=== PATIENT | male | born 1960 | race Hispanic/Latino ===

== ENCOUNTER 2017-07-17 07:39 | Outpatient (CLI) | payer BC ==
--- NOTE | 2017-07-17 09:17 | CT ---
CT LOW DOSE CANCER SCREENING PROTOCOL OF THE CHEST WITHOUT CONTRAST: Comparison: Smoking history for 30 years. Screening for lung cancer. Technique: Multiple contiguous axial images were obtained in a low dose chest CT without contrast per cancer screening protocol. Sagittal and coronal reformats were performed. FINDINGS: No pulmonary nodules were identified. No infiltrates are seen in the lungs. No pneumothorax or pleura l effusions are seen. The heart is normal in size without focal cardiac abnormality. The patient is status post CABG. No hi lar or mediastinal lymphadenopathy are appreciated on this noncontrast examination. The visualized subdiaphragmatic structures are unremarkable. Degenerative changes are seen in the spi ne. The chest wall soft tissues are unremarkable. IMPRESSION: Lungs rads category 1 - negative. POS: [facility]
== END 2017-07-17 07:40 | disposition home or self-care (01) ==
LOC: CT 07:39
PROVIDERS: ATTEND Family Medicine
DX: Z87.891 Personal history of nicotine dependence (principal)
CPT/HCPCS: G0297

== ENCOUNTER 2021-02-21 10:51 | Inpatient (IN) | payer MEDICARE, BC ==
[2021-02-21 11:59] LABS: #Eosinphils 0.1 thou/uL (0.0-0.7); #Lymphocytes 1.9 thou/uL (1.20-3.40); #Monocytes 0.7 thou/uL (0.11-0.59); #Neutrophils 11.9 thou/uL (1.40-6.50); %Basophils 0.3 % (0.0-1.0); %Eosinophils 0.6 % (0.0-10.0); %Monocytes 4.7 % (0.0-10.0); %Neutrophils 81.5 % (42.0-75.0); Hemoglobin 13.7 g/dL (14.0-18.0); Mean Corpuscular HGB CONC 34.2 g/dL (32.0-36.0); Mean Corpuscular Hemoglobin 34.7 pg (27.0-31.0); Mean Platelet Volume 8.1 fL (7.4-10.4); Platelet Count 251 thou/uL (130-400); RBC Distribution Width 11.7 % (11.5-14.5); Red Blood Cell (RBC) Count 3.95 mill/uL (4.70-6.10); White Blood Cell (WBC) Count 14.6 thou/uL (4.8-10.8)
[2021-02-21 12:09] LABS: ALT (SGPT) 10 U/L (8-55); AST (SGOT) 16 U/L (5-34); Albumin 3.4 g/dL (3.5-5.0); Alkaline Phosphatase 79 U/L (40-110); Anion Gap 10 mmol/L (10-20); BUN (Urea Nitrogen) 9 mg/dL (8.4-25.7); Calc. Creatinine Clearance 0 mL/min (70-130); Calcium 8.9 mg/dL (7.8-10.44); Carbon Dioxide 25 mmol/L (22-29); Chloride 102 mmol/L (98-107); Glucose 132 mg/dL (70-105); Potassium 3.4 mmol/L (3.5-5.1); Protein, Total 7.4 g/dL (6.0-8.3); Sodium 134 mmol/L (136-145)
[2021-02-21] MEDS ORDERED: Fentanyl 100 MCG/2 ML VIAL ONE (14:51)
[2021-02-21] MEDS ORDERED: Ondansetron PF 4 MG/2 ML Vial ONE (14:54)
[2021-02-21] MEDS ORDERED: Cefepime 2 GM VIAL ONE (14:56)
[2021-02-21] MEDS ORDERED: VANCOMYCIN 2 GRAM/400 ML BAG 2 GM in Premix Bag 1 BAG IVPB SCH (15:30)
[2021-02-21] MEDS ORDERED: Dextrose 50% Abboject 50 ML SYRINGE SLOW IVP PRN (18:04)
[2021-02-21] MEDS ORDERED: Dextrose 5% in Water 1,000 ML IV PRN (18:04)
[2021-02-21] MEDS ORDERED: Ondansetron ODT 4 MG TAB PO PRN (18:04)
[2021-02-21] MEDS ORDERED: HYDROcodone/Acetaminophen 5/325 mg Tablet PO PRN (18:04)
[2021-02-21] MEDS: HYDROcodone/Acetaminophen 5/325 mg Tablet PO PRN (19:37)
[2021-02-21 20:00] VITALS: BMI 30.9
[2021-02-22] MEDS: Cefepime 1 GM in Sodium Chloride 0.9% 100 ML IVPB SCH ×2 (02:33→15:47)
[2021-02-22] MEDS: HYDROcodone/Acetaminophen 5/325 mg Tablet PO PRN ×4 (02:33→19:18)
[2021-02-22] MEDS: VANCOMYCIN 2 GRAM/400 ML BAG 2 GM in Premix Bag 1 BAG IVPB SCH ×2 (05:18→17:24)
[2021-02-22 06:42] LABS: Anion Gap 9 mmol/L (10-20); BUN (Urea Nitrogen) 8 mg/dL (8.4-25.7); Calc. Creatinine Clearance 215 mL/min (70-130); Calcium 8.3 mg/dL (7.8-10.44); Carbon Dioxide 26 mmol/L (22-29); Chloride 103 mmol/L (98-107); Glucose 110 mg/dL (70-105); Potassium 3.5 mmol/L (3.5-5.1); Sodium 134 mmol/L (136-145)
[2021-02-22 06:46] LABS: #Eosinphils 0.2 thou/uL (0.0-0.7); #Lymphocytes 2.3 thou/uL (1.20-3.40); #Monocytes 0.8 thou/uL (0.11-0.59); #Neutrophils 9.5 thou/uL (1.40-6.50); %Basophils 0.1 % (0.0-1.0); %Eosinophils 1.2 % (0.0-10.0); %Lymphocytes 17.9 % (21.0-51.0); %Neutrophils 74.8 % (42.0-75.0); Hemoglobin 11.9 g/dL (14.0-18.0); Mean Corpuscular HGB CONC 33.5 g/dL (32.0-36.0); Mean Corpuscular Hemoglobin 34.2 pg (27.0-31.0); Mean Platelet Volume 8.3 fL (7.4-10.4); Platelet Count 246 thou/uL (130-400); RBC Distribution Width 11.7 % (11.5-14.5); Red Blood Cell (RBC) Count 3.48 mill/uL (4.70-6.10); White Blood Cell (WBC) Count 12.7 thou/uL (4.8-10.8)
[2021-02-22] MEDS: Gabapentin 300 MG CAP PO SCH (08:16)
[2021-02-22] MEDS: Enoxaparin Sodium 40 MG/0.4 ML SYRINGE SC SCH (08:16)
[2021-02-22] MEDS: Clopidogrel Bisulfate 75 MG TAB PO SCH (08:17)
[2021-02-22] MEDS: Aspirin 81 mg Enteric Coated Tablet PO SCH (08:17)
[2021-02-22] MEDS: Metoprolol Tartrate 50 MG TAB PO SCH (08:17)
[2021-02-22] MEDS ORDERED: Non-Formulary Item 1 EACH (Atorvastatin Calcium [Lipitor] 80 MG Tablet) PO SCH (09:00)
[2021-02-22] MEDS ORDERED: Non-Formulary Item 1 EACH (Gabapentin [Neurontin] 600 MG Tablet) PO SCH (09:00)
[2021-02-22] MEDS: Lisinopril/Hydrochlorothiazide 20/25 mg Tablet PO SCH (11:09)
[2021-02-22] MEDS: Cilostazol 100 MG TAB PO SCH ×2 (11:10→17:25)
[2021-02-22] MEDS: HumaLOG 300 UNITS/3 ML VIAL SC PRN ×2 (12:19→17:26)
[2021-02-22] MEDS: Acetaminophen 325 MG TAB PO PRN (16:30)
[2021-02-22] MEDS: Atorvastatin Calcium 40 MG TAB PO SCH (20:56)
[2021-02-23] MEDS: Cefepime 1 GM in Sodium Chloride 0.9% 100 ML IVPB SCH ×2 (03:00→15:57)
[2021-02-23] MEDS: VANCOMYCIN 2 GRAM/400 ML BAG 2 GM in Premix Bag 1 BAG IVPB SCH (05:04)
[2021-02-23 05:35] LABS: #Eosinphils 0.1 thou/uL (0.0-0.7); #Lymphocytes 1.4 thou/uL (1.20-3.40); #Monocytes 0.6 thou/uL (0.11-0.59); %Eosinophils 0.8 % (0.0-10.0); %Lymphocytes 11.7 % (21.0-51.0); %Monocytes 4.9 % (0.0-10.0); %Neutrophils 82.6 % (42.0-75.0); Mean Corpuscular HGB CONC 33.7 g/dL (32.0-36.0); Mean Corpuscular Hemoglobin 34.2 pg (27.0-31.0); Mean Platelet Volume 7.8 fL (7.4-10.4); Platelet Count 269 thou/uL (130-400); RBC Distribution Width 11.6 % (11.5-14.5); Red Blood Cell (RBC) Count 3.79 mill/uL (4.70-6.10); White Blood Cell (WBC) Count 12.2 thou/uL (4.8-10.8)
[2021-02-23 05:53] LABS: Vancomycin, Trough 10.4 ug/mL
[2021-02-23 05:54] LABS: Anion Gap 12 mmol/L (10-20); BUN (Urea Nitrogen) 5 mg/dL (8.4-25.7); Calc. Creatinine Clearance 166 mL/min (70-130); Calcium 8.8 mg/dL (7.8-10.44); Carbon Dioxide 26 mmol/L (22-29); Chloride 98 mmol/L (98-107); Glucose 150 mg/dL (70-105); Potassium 3.6 mmol/L (3.5-5.1); Sodium 132 mmol/L (136-145)
[2021-02-23] MEDS: Vancomycin 1.5 GRAM/300 ML BAG 1.5 GM in Premix Bag 1 BAG IVPB SCH ×2 (06:18→16:46)
[2021-02-23] MEDS: Gabapentin 300 MG CAP PO SCH (08:10)
[2021-02-23] MEDS: Cilostazol 100 MG TAB PO SCH ×2 (08:10→15:58)
[2021-02-23] MEDS: Lisinopril/Hydrochlorothiazide 20/25 mg Tablet PO SCH (08:11)
[2021-02-23] MEDS: Metoprolol Tartrate 50 MG TAB PO SCH (08:11)
[2021-02-23] MEDS: Enoxaparin Sodium 40 MG/0.4 ML SYRINGE SC SCH (08:11)
[2021-02-23] MEDS: Clopidogrel Bisulfate 75 MG TAB PO SCH (08:11)
[2021-02-23] MEDS: Aspirin 81 mg Enteric Coated Tablet PO SCH (08:11)
[2021-02-23] MEDS: HYDROcodone/Acetaminophen 5/325 mg Tablet PO PRN ×3 (09:32→20:04)
[2021-02-23] MEDS: HumaLOG 300 UNITS/3 ML VIAL SC PRN ×2 (11:47→16:47)
[2021-02-23] MEDS: Acetaminophen 325 MG TAB PO PRN (16:46)
[2021-02-23] MEDS: Atorvastatin Calcium 40 MG TAB PO SCH (20:04)
[2021-02-24] MEDS: Vancomycin 1.5 GRAM/300 ML BAG 1.5 GM in Premix Bag 1 BAG IVPB SCH ×3 (00:21→15:26)
[2021-02-24] MEDS: Cefepime 1 GM in Sodium Chloride 0.9% 100 ML IVPB SCH (03:40)
[2021-02-24 07:57] LABS: #Basophils 0.1 thou/uL (0.0-0.2); #Eosinphils 0.1 thou/uL (0.0-0.7); #Lymphocytes 1.4 thou/uL (1.20-3.40); #Monocytes 0.8 thou/uL (0.11-0.59); #Neutrophils 12.6 thou/uL (1.40-6.50); %Basophils 0.4 % (0.0-1.0); %Eosinophils 0.4 % (0.0-10.0); %Lymphocytes 9.1 % (21.0-51.0); %Monocytes 5.6 % (0.0-10.0); %Neutrophils 84.6 % (42.0-75.0); Hemoglobin 12.5 g/dL (14.0-18.0); Mean Corpuscular Hemoglobin 32.3 pg (27.0-31.0); Platelet Count 284 thou/uL (130-400); RBC Distribution Width 11.6 % (11.5-14.5); Red Blood Cell (RBC) Count 3.85 mill/uL (4.70-6.10); White Blood Cell (WBC) Count 14.9 thou/uL (4.8-10.8)
[2021-02-24 08:04] LABS: Vancomycin, Trough 16.5 ug/mL
[2021-02-24 08:08] LABS: Anion Gap 13 mmol/L (10-20); BUN (Urea Nitrogen) 7 mg/dL (8.4-25.7); Calc. Creatinine Clearance 145 mL/min (70-130); Carbon Dioxide 29 mmol/L (22-29); Chloride 95 mmol/L (98-107); Glucose 159 mg/dL (70-105); Potassium 3.9 mmol/L (3.5-5.1); Sodium 133 mmol/L (136-145)
[2021-02-24] MEDS: Lisinopril/Hydrochlorothiazide 20/25 mg Tablet PO SCH (08:23)
[2021-02-24] MEDS: Aspirin 81 mg Enteric Coated Tablet PO SCH (08:23)
[2021-02-24] MEDS: Cilostazol 100 MG TAB PO SCH ×2 (08:23→17:36)
[2021-02-24] MEDS: Clopidogrel Bisulfate 75 MG TAB PO SCH (08:24)
[2021-02-24] MEDS: Gabapentin 300 MG CAP PO SCH (08:24)
[2021-02-24] MEDS: Metoprolol Tartrate 50 MG TAB PO SCH (08:24)
[2021-02-24] MEDS: HYDROcodone/Acetaminophen 5/325 mg Tablet PO PRN ×3 (08:28→19:47)
[2021-02-24] MEDS: Enoxaparin Sodium 40 MG/0.4 ML SYRINGE SC SCH (08:33)
[2021-02-24] MEDS ORDERED: Ampicillin/Sulbactam 3 GM in Sodium Chloride 0.9% 100 ML IVPB SCH (12:00)
[2021-02-24] MEDS ORDERED: Electrolyte Replacement Protocol 1 EACH FS SCH (13:15)
[2021-02-24] MEDS ORDERED: Piperacillin/Tazobactam 3.375 GM in Sodium Chloride 0.9% 100 ML IVPB SCH ×3 (16:00→20:00)
[2021-02-24] MEDS ORDERED: Piperacillin/Tazobactam 4.5 GM in Sodium Chloride 0.9% 100 ML IVPB SCH (18:00)
[2021-02-24] MEDS: Atorvastatin Calcium 40 MG TAB PO SCH (19:46)
[2021-02-24] MEDS: Piperacillin/Tazobactam 3.375 GM in Sodium Chloride 0.9% 100 ML IVPB SCH (22:25)
[2021-02-25] MEDS: Vancomycin 1.5 GRAM/300 ML BAG 1.5 GM in Premix Bag 1 BAG IVPB SCH ×3 (00:17→15:43)
[2021-02-25] MEDS: HYDROcodone/Acetaminophen 5/325 mg Tablet PO PRN ×3 (05:21→22:37)
[2021-02-25] MEDS: Piperacillin/Tazobactam 3.375 GM in Sodium Chloride 0.9% 100 ML IVPB SCH ×3 (05:25→21:05)
[2021-02-25 05:52] LABS: #Eosinphils 0.1 thou/uL (0.0-0.7); #Lymphocytes 1.5 thou/uL (1.20-3.40); #Monocytes 0.9 thou/uL (0.11-0.59); #Neutrophils 15.1 thou/uL (1.40-6.50); %Basophils 0.2 % (0.0-1.0); %Eosinophils 0.4 % (0.0-10.0); %Lymphocytes 8.7 % (21.0-51.0); %Monocytes 5.2 % (0.0-10.0); %Neutrophils 85.5 % (42.0-75.0); Hemoglobin 12.8 g/dL (14.0-18.0); Mean Corpuscular Hemoglobin 33.1 pg (27.0-31.0); Mean Platelet Volume 7.6 fL (7.4-10.4); Platelet Count 319 thou/uL (130-400); RBC Distribution Width 11.6 % (11.5-14.5); Red Blood Cell (RBC) Count 3.86 mill/uL (4.70-6.10); White Blood Cell (WBC) Count 17.6 thou/uL (4.8-10.8)
[2021-02-25 06:10] LABS: Anion Gap 15 mmol/L (10-20); BUN (Urea Nitrogen) 11 mg/dL (8.4-25.7); Calc. Creatinine Clearance 149 mL/min (70-130); Calcium 8.9 mg/dL (7.8-10.44); Carbon Dioxide 23 mmol/L (22-29); Chloride 95 mmol/L (98-107); Glucose 182 mg/dL (70-105); Potassium 3.3 mmol/L (3.5-5.1); Sodium 130 mmol/L (136-145)
[2021-02-25] MEDS ORDERED: Potassium Chloride 20 MEQ TAB PO SCH (07:00)
[2021-02-25] MEDS: Saccharomyces boulardii 250 MG CAP PO SCH (09:52)
[2021-02-25] MEDS: Aspirin 81 mg Enteric Coated Tablet PO SCH (09:53)
[2021-02-25] MEDS: Gabapentin 300 MG CAP PO SCH (09:53)
[2021-02-25] MEDS: Clopidogrel Bisulfate 75 MG TAB PO SCH (09:53)
[2021-02-25] MEDS: Metoprolol Tartrate 50 MG TAB PO SCH (09:53)
[2021-02-25] MEDS: Lisinopril/Hydrochlorothiazide 20/25 mg Tablet PO SCH (09:54)
[2021-02-25] MEDS: Cilostazol 100 MG TAB PO SCH ×2 (09:54→15:43)
[2021-02-25] MEDS: HumaLOG 300 UNITS/3 ML VIAL SC PRN ×2 (12:50→17:24)
[2021-02-25] MEDS: Atorvastatin Calcium 40 MG TAB PO SCH (20:22)
[2021-02-25] MEDS: Polyethylene Glycol 3350 17 GM Packet PO PRN (20:26)
[2021-02-26] MEDS: Vancomycin 1.5 GRAM/300 ML BAG 1.5 GM in Premix Bag 1 BAG IVPB SCH ×2 (00:19→08:46)
[2021-02-26] MEDS: HYDROcodone/Acetaminophen 5/325 mg Tablet PO PRN ×4 (05:18→23:48)
[2021-02-26] MEDS: Piperacillin/Tazobactam 3.375 GM in Sodium Chloride 0.9% 100 ML IVPB SCH ×3 (05:20→22:00)
[2021-02-26] MEDS: Metoprolol Tartrate 50 MG TAB PO SCH (05:20)
[2021-02-26] MEDS: Gabapentin 300 MG CAP PO SCH (08:46)
[2021-02-26] MEDS: Aspirin 81 mg Enteric Coated Tablet PO SCH (08:46)
[2021-02-26] MEDS: Clopidogrel Bisulfate 75 MG TAB PO SCH ×3 (08:47→14:46)
[2021-02-26] MEDS: Lisinopril/Hydrochlorothiazide 20/25 mg Tablet PO SCH (08:47)
[2021-02-26] MEDS: Cilostazol 100 MG TAB PO SCH ×2 (08:47→18:02)
[2021-02-26] MEDS: Saccharomyces boulardii 250 MG CAP PO SCH (08:47)
[2021-02-26 09:51] LABS: #Eosinphils 0.1 thou/uL (0.0-0.7); #Lymphocytes 1.1 thou/uL (1.20-3.40); #Monocytes 0.8 thou/uL (0.11-0.59); #Neutrophils 13.8 thou/uL (1.40-6.50); %Eosinophils 0.6 % (0.0-10.0); %Lymphocytes 7.2 % (21.0-51.0); %Monocytes 4.7 % (0.0-10.0); %Neutrophils 87.4 % (42.0-75.0); Hemoglobin 12.8 g/dL (14.0-18.0); Mean Corpuscular Hemoglobin 34.1 pg (27.0-31.0); Mean Platelet Volume 7.5 fL (7.4-10.4); Platelet Count 328 thou/uL (130-400); RBC Distribution Width 11.5 % (11.5-14.5); Red Blood Cell (RBC) Count 3.77 mill/uL (4.70-6.10); White Blood Cell (WBC) Count 15.8 thou/uL (4.8-10.8)
[2021-02-26 10:09] LABS: Anion Gap 12 mmol/L (10-20); BUN (Urea Nitrogen) 10 mg/dL (8.4-25.7); Calc. Creatinine Clearance 155 mL/min (70-130); Calcium 8.7 mg/dL (7.8-10.44); Carbon Dioxide 27 mmol/L (22-29); Chloride 95 mmol/L (98-107); Glucose 188 mg/dL (70-105); Potassium 3.5 mmol/L (3.5-5.1); Sodium 130 mmol/L (136-145)
[2021-02-26] MEDS ORDERED: Potassium Chloride 20 MEQ TAB PO SCH (10:30)
[2021-02-26] MEDS: Morphine 4 MG/ML VIAL SLOW IVP PRN (12:11)
[2021-02-26] MEDS: HumaLOG 300 UNITS/3 ML VIAL SC PRN ×2 (12:11→18:03)
[2021-02-26 15:09] LABS: Vancomycin, Trough 22.4 ug/mL
[2021-02-26] MEDS: VANCOMYCIN 1.25 GM/250 ML BAG 1.25 GM in Premix Bag 1 BAG IVPB SCH ×2 (18:02→23:47)
[2021-02-26] MEDS: Atorvastatin Calcium 40 MG TAB PO SCH (19:05)
[2021-02-27] MEDS: HYDROcodone/Acetaminophen 5/325 mg Tablet PO PRN ×4 (04:42→21:28)
[2021-02-27] MEDS: Piperacillin/Tazobactam 3.375 GM in Sodium Chloride 0.9% 100 ML IVPB SCH ×3 (04:45→22:58)
[2021-02-27] MEDS: Metoprolol Tartrate 50 MG TAB PO SCH (05:13)
[2021-02-27 06:49] LABS: #Eosinphils 0.1 thou/uL (0.0-0.7); #Monocytes 0.9 thou/uL (0.11-0.59); #Neutrophils 13.5 thou/uL (1.40-6.50); %Basophils 0.1 % (0.0-1.0); %Eosinophils 0.8 % (0.0-10.0); %Lymphocytes 6.6 % (21.0-51.0); %Monocytes 5.7 % (0.0-10.0); %Neutrophils 86.8 % (42.0-75.0); Hemoglobin 12.3 g/dL (14.0-18.0); Mean Corpuscular HGB CONC 33.3 g/dL (32.0-36.0); Mean Corpuscular Hemoglobin 33.2 pg (27.0-31.0); Mean Corpuscular Volume 99.8 fL (78.0-98.0); Mean Platelet Volume 7.6 fL (7.4-10.4); Platelet Count 335 thou/uL (130-400); RBC Distribution Width 11.5 % (11.5-14.5); White Blood Cell (WBC) Count 15.6 thou/uL (4.8-10.8)
[2021-02-27 07:07] LABS: Anion Gap 12 mmol/L (10-20); BUN (Urea Nitrogen) 10 mg/dL (8.4-25.7); Calc. Creatinine Clearance 157 mL/min (70-130); Calcium 8.6 mg/dL (7.8-10.44); Carbon Dioxide 25 mmol/L (22-29); Chloride 95 mmol/L (98-107); Glucose 170 mg/dL (70-105); Potassium 3.3 mmol/L (3.5-5.1); Sodium 129 mmol/L (136-145)
[2021-02-27] MEDS: Morphine 4 MG/ML VIAL SLOW IVP PRN (08:22)
[2021-02-27] MEDS ORDERED: Potassium Chloride 20 MEQ TAB PO SCH (09:00)
[2021-02-27] MEDS ORDERED: SUGAMMADEX SODIUM 200 MG/2 ML VIAL ONE (09:04)
[2021-02-27] MEDS ORDERED: Fentanyl 100 MCG/2 ML VIAL ONE ×2 (09:04→11:07)
[2021-02-27] MEDS: VANCOMYCIN 1.25 GM/250 ML BAG 1.25 GM in Premix Bag 1 BAG IVPB SCH ×2 (09:14→17:08)
[2021-02-27] MEDS ORDERED: cefOXitin Sodium/Dextrose 2 GM/50 ML BAG ONE (09:15)
[2021-02-27] MEDS ORDERED: PHENYLEPHRINE-NS 100 MCG/ML 10 ML SYRINGE ONE (10:05)
[2021-02-27] MEDS ORDERED: Ondansetron PF 4 MG/2 ML Vial ONE (10:05)
[2021-02-27] MEDS ORDERED: PROPOFOL 200 MG/20 ML VIAL ONE (10:05)
[2021-02-27] MEDS ORDERED: Promethazine HCl 25 MG/ML VIAL IM PRN (11:01)
[2021-02-27] MEDS ORDERED: HYDROmorphone 2 MG/ML VIAL SLOW IVP PRN (11:01)
[2021-02-27] MEDS ORDERED: Meperidine HCl/PF 25 MG/ML VIAL SLOW IVP PRN (11:01)
[2021-02-27] MEDS ORDERED: Promethazine HCl 25 MG/ML VIAL IVPB PRN (11:01)
[2021-02-27] MEDS ORDERED: Ondansetron HCl/PF 4 MG/2 ML Vial IVP PRN (11:01)
[2021-02-27] MEDS ORDERED: Ketorolac Tromethamine 30 MG/ML VIAL IVP PRN (11:01)
[2021-02-27] MEDS: Cilostazol 100 MG TAB PO SCH ×2 (11:07→17:12)
[2021-02-27] MEDS: Lisinopril/Hydrochlorothiazide 20/25 mg Tablet PO SCH (12:48)
[2021-02-27] MEDS: Gabapentin 300 MG CAP PO SCH (12:48)
[2021-02-27] MEDS: Clopidogrel Bisulfate 75 MG TAB PO SCH (12:49)
[2021-02-27] MEDS: Aspirin 81 mg Enteric Coated Tablet PO SCH (12:50)
[2021-02-27] MEDS: Saccharomyces boulardii 250 MG CAP PO SCH (12:51)
[2021-02-27 15:24] LABS: Vancomycin, Trough 22.8 ug/mL
[2021-02-27] MEDS: HumaLOG 300 UNITS/3 ML VIAL SC PRN (17:10)
[2021-02-27] MEDS: Polyethylene Glycol 3350 17 GM Packet PO PRN (17:12)
[2021-02-27] MEDS: Vancomycin 1 GM in Premix Bag 1 BAG IVPB SCH (17:47)
[2021-02-27] MEDS: Atorvastatin Calcium 40 MG TAB PO SCH (20:04)
[2021-02-28] MEDS: HYDROcodone/Acetaminophen 5/325 mg Tablet PO PRN ×3 (02:58→16:26)
[2021-02-28] MEDS: Vancomycin 1 GM in Premix Bag 1 BAG IVPB SCH ×3 (04:28→17:52)
[2021-02-28 06:00] LABS: #Eosinphils 0.1 thou/uL (0.0-0.7); #Lymphocytes 1.4 thou/uL (1.20-3.40); #Monocytes 0.8 thou/uL (0.11-0.59); #Neutrophils 13.1 thou/uL (1.40-6.50); %Basophils 0.1 % (0.0-1.0); %Eosinophils 0.6 % (0.0-10.0); %Lymphocytes 8.8 % (21.0-51.0); %Monocytes 5.2 % (0.0-10.0); %Neutrophils 85.3 % (42.0-75.0); Hemoglobin 12.1 g/dL (14.0-18.0); Mean Corpuscular HGB CONC 32.6 g/dL (32.0-36.0); Mean Corpuscular Hemoglobin 32.6 pg (27.0-31.0); Mean Platelet Volume 7.4 fL (7.4-10.4); Platelet Count 367 thou/uL (130-400); RBC Distribution Width 11.7 % (11.5-14.5); White Blood Cell (WBC) Count 15.3 thou/uL (4.8-10.8)
[2021-02-28] MEDS: HumaLOG 300 UNITS/3 ML VIAL SC PRN ×4 (06:04→21:14)
[2021-02-28] MEDS: Piperacillin/Tazobactam 3.375 GM in Sodium Chloride 0.9% 100 ML IVPB SCH ×2 (06:07→16:25)
[2021-02-28 06:23] LABS: Anion Gap 11 mmol/L (10-20); BUN (Urea Nitrogen) 8 mg/dL (8.4-25.7); Calc. Creatinine Clearance 157 mL/min (70-130); Calcium 8.5 mg/dL (7.8-10.44); Carbon Dioxide 28 mmol/L (22-29); Chloride 92 mmol/L (98-107); Glucose 195 mg/dL (70-105); Potassium 3.5 mmol/L (3.5-5.1); Sodium 127 mmol/L (136-145)
[2021-02-28] MEDS: Clopidogrel Bisulfate 75 MG TAB PO SCH (08:22)
[2021-02-28] MEDS: Gabapentin 300 MG CAP PO SCH (08:22)
[2021-02-28] MEDS: Aspirin 81 mg Enteric Coated Tablet PO SCH (08:24)
[2021-02-28] MEDS: Saccharomyces boulardii 250 MG CAP PO SCH (08:24)
[2021-02-28] MEDS: Cilostazol 100 MG TAB PO SCH ×2 (08:24→16:27)
[2021-02-28] MEDS: Metoprolol Tartrate 50 MG TAB PO SCH (08:25)
[2021-02-28] MEDS: Lisinopril/Hydrochlorothiazide 20/25 mg Tablet PO SCH (08:25)
[2021-02-28] MEDS ORDERED: Potassium Chloride 20 MEQ TAB PO SCH (09:00)
[2021-02-28] MEDS ORDERED: Enoxaparin Sodium 40 MG/0.4 ML SYRINGE SC SCH (15:00)
[2021-02-28] MEDS: Enoxaparin Sodium 40 MG/0.4 ML SYRINGE SC SCH (15:07)
[2021-02-28] MEDS: Atorvastatin Calcium 40 MG TAB PO SCH (19:49)
[2021-03-01] MEDS: Piperacillin/Tazobactam 3.375 GM in Sodium Chloride 0.9% 100 ML IVPB SCH ×3 (01:41→17:02)
[2021-03-01] MEDS: HYDROcodone/Acetaminophen 5/325 mg Tablet PO PRN ×3 (01:48→17:03)
[2021-03-01 06:40] LABS: #Eosinphils 0.1 thou/uL (0.0-0.7); #Lymphocytes 1.7 thou/uL (1.20-3.40); #Monocytes 0.7 thou/uL (0.11-0.59); #Neutrophils 12.4 thou/uL (1.40-6.50); %Basophils 0.3 % (0.0-1.0); %Eosinophils 0.6 % (0.0-10.0); %Lymphocytes 11.6 % (21.0-51.0); %Monocytes 4.7 % (0.0-10.0); %Neutrophils 82.9 % (42.0-75.0); Hemoglobin 12.6 g/dL (14.0-18.0); Mean Corpuscular HGB CONC 32.7 g/dL (32.0-36.0); Mean Corpuscular Hemoglobin 32.6 pg (27.0-31.0); Mean Corpuscular Volume 99.7 fL (78.0-98.0); Mean Platelet Volume 7.3 fL (7.4-10.4); Platelet Count 411 thou/uL (130-400); RBC Distribution Width 11.7 % (11.5-14.5); Red Blood Cell (RBC) Count 3.86 mill/uL (4.70-6.10)
[2021-03-01 06:57] LABS: Anion Gap 11 mmol/L (10-20); BUN (Urea Nitrogen) 8 mg/dL (8.4-25.7); Calc. Creatinine Clearance 153 mL/min (70-130); Calcium 8.7 mg/dL (7.8-10.44); Carbon Dioxide 29 mmol/L (22-29); Chloride 93 mmol/L (98-107); Glucose 183 mg/dL (70-105); Potassium 3.7 mmol/L (3.5-5.1); Sodium 129 mmol/L (136-145)
[2021-03-01] MEDS: Enoxaparin Sodium 40 MG/0.4 ML SYRINGE SC SCH (09:17)
[2021-03-01] MEDS: Aspirin 81 mg Enteric Coated Tablet PO SCH (09:17)
[2021-03-01] MEDS: Metoprolol Tartrate 50 MG TAB PO SCH (09:18)
[2021-03-01] MEDS: Gabapentin 300 MG CAP PO SCH (09:18)
[2021-03-01] MEDS: Cilostazol 100 MG TAB PO SCH ×2 (09:18→17:02)
[2021-03-01] MEDS: Lisinopril 20 MG TAB PO SCH (09:19)
[2021-03-01] MEDS: Clopidogrel Bisulfate 75 MG TAB PO SCH (09:19)
[2021-03-01] MEDS: Saccharomyces boulardii 250 MG CAP PO SCH (09:19)
[2021-03-01] MEDS: HumaLOG 300 UNITS/3 ML VIAL SC PRN ×2 (12:33→17:05)
[2021-03-01] MEDS: Atorvastatin Calcium 40 MG TAB PO SCH (20:00)
[2021-03-01] MEDS: Morphine 4 MG/ML VIAL SLOW IVP PRN (20:00)
[2021-03-02] MEDS: Piperacillin/Tazobactam 3.375 GM in Sodium Chloride 0.9% 100 ML IVPB SCH ×3 (01:18→16:35)
[2021-03-02] MEDS: HYDROcodone/Acetaminophen 5/325 mg Tablet PO PRN ×3 (04:40→20:01)
[2021-03-02] MEDS: Metoprolol Tartrate 50 MG TAB PO SCH (08:43)
[2021-03-02] MEDS: Gabapentin 300 MG CAP PO SCH (08:43)
[2021-03-02] MEDS: Saccharomyces boulardii 250 MG CAP PO SCH (08:43)
[2021-03-02] MEDS: Enoxaparin Sodium 40 MG/0.4 ML SYRINGE SC SCH (08:44)
[2021-03-02] MEDS: Lisinopril 20 MG TAB PO SCH (08:44)
[2021-03-02] MEDS: Clopidogrel Bisulfate 75 MG TAB PO SCH (08:44)
[2021-03-02] MEDS: Cilostazol 100 MG TAB PO SCH ×2 (08:44→16:35)
[2021-03-02] MEDS: Aspirin 81 mg Enteric Coated Tablet PO SCH (08:44)
[2021-03-02] MEDS ORDERED: Iopamidol 370 76% 100 ML VIAL ONE (09:55)
[2021-03-02] MEDS: HumaLOG 300 UNITS/3 ML VIAL SC PRN ×2 (12:44→23:22)
[2021-03-02] MEDS: Lactated Ringer's 1,000 ML IV SCH (13:58)
[2021-03-02] MEDS ORDERED: Lantus 1000 UNITS/10 ML VIAL SC SCH (16:15)
[2021-03-02] MEDS: Atorvastatin Calcium 40 MG TAB PO SCH (20:01)
[2021-03-03] MEDS: Piperacillin/Tazobactam 3.375 GM in Sodium Chloride 0.9% 100 ML IVPB SCH ×3 (00:09→17:50)
[2021-03-03] MEDS: HYDROcodone/Acetaminophen 5/325 mg Tablet PO PRN ×3 (00:10→20:13)
[2021-03-03 05:52] LABS: #Eosinphils 0.2 thou/uL (0.0-0.7); #Lymphocytes 1.8 thou/uL (1.20-3.40); #Monocytes 0.7 thou/uL (0.11-0.59); %Basophils 0.4 % (0.0-1.0); %Eosinophils 1.2 % (0.0-10.0); %Lymphocytes 14.2 % (21.0-51.0); %Monocytes 5.3 % (0.0-10.0); %Neutrophils 78.9 % (42.0-75.0); Hemoglobin 12.2 g/dL (14.0-18.0); Mean Corpuscular HGB CONC 31.9 g/dL (32.0-36.0); Mean Corpuscular Hemoglobin 32.1 pg (27.0-31.0); Mean Platelet Volume 7.4 fL (7.4-10.4); Platelet Count 526 thou/uL (130-400); RBC Distribution Width 11.7 % (11.5-14.5); Red Blood Cell (RBC) Count 3.81 mill/uL (4.70-6.10); White Blood Cell (WBC) Count 12.6 thou/uL (4.8-10.8)
[2021-03-03 06:11] LABS: Anion Gap 11 mmol/L (10-20); BUN (Urea Nitrogen) 8 mg/dL (8.4-25.7); Calc. Creatinine Clearance 162 mL/min (70-130); Calcium 8.9 mg/dL (7.8-10.44); Carbon Dioxide 25 mmol/L (22-29); Chloride 99 mmol/L (98-107); Glucose 146 mg/dL (70-105); Potassium 4.2 mmol/L (3.5-5.1); Sodium 131 mmol/L (136-145)
[2021-03-03] MEDS: Cilostazol 100 MG TAB PO SCH ×2 (08:32→17:50)
[2021-03-03] MEDS: Aspirin 81 mg Enteric Coated Tablet PO SCH (08:32)
[2021-03-03] MEDS: Clopidogrel Bisulfate 75 MG TAB PO SCH (08:32)
[2021-03-03] MEDS: Lisinopril 20 MG TAB PO SCH (08:33)
[2021-03-03] MEDS: Lantus 1000 UNITS/10 ML VIAL SC SCH (08:33)
[2021-03-03] MEDS: Enoxaparin Sodium 40 MG/0.4 ML SYRINGE SC SCH (08:33)
[2021-03-03] MEDS: Saccharomyces boulardii 250 MG CAP PO SCH (08:34)
[2021-03-03] MEDS: Gabapentin 300 MG CAP PO SCH (08:36)
[2021-03-03] MEDS: Metoprolol Tartrate 50 MG TAB PO SCH (08:36)
[2021-03-03] MEDS ORDERED: Iopamidol 370 76% 50 ML VIAL FS ONE (09:40)
[2021-03-03] MEDS: Lactated Ringer's 1,000 ML IV SCH (11:47)
[2021-03-03] MEDS ORDERED: Lidocaine 1% (PF) 30 ML VIAL ONE (12:49)
[2021-03-03] MEDS: Morphine 4 MG/ML VIAL SLOW IVP PRN (12:54)
[2021-03-03] MEDS ORDERED: Heparin 10,000 UNITS/ 10 ML VIAL ONE (13:51)
[2021-03-03] MEDS ORDERED: Protamine Sulfate 50 MG/5 ML VIAL ONE (14:57)
[2021-03-03] MEDS ORDERED: Morphine 4 MG/ML VIAL ONE (15:43)
[2021-03-03] MEDS: Atorvastatin Calcium 40 MG TAB PO SCH (20:13)
[2021-03-04] MEDS: Piperacillin/Tazobactam 3.375 GM in Sodium Chloride 0.9% 100 ML IVPB SCH ×3 (00:55→17:04)
[2021-03-04] MEDS: Lactated Ringer's 1,000 ML IV SCH (04:29)
[2021-03-04] MEDS: HYDROcodone/Acetaminophen 5/325 mg Tablet PO PRN ×3 (04:56→23:10)
[2021-03-04] MEDS: HumaLOG 300 UNITS/3 ML VIAL SC PRN ×4 (04:58→20:51)
[2021-03-04 06:57] LABS: #Eosinphils 0.1 thou/uL (0.0-0.7); #Lymphocytes 1.3 thou/uL (1.20-3.40); #Monocytes 0.5 thou/uL (0.11-0.59); #Neutrophils 10.2 thou/uL (1.40-6.50); %Basophils 0.1 % (0.0-1.0); %Eosinophils 0.9 % (0.0-10.0); %Lymphocytes 10.6 % (21.0-51.0); %Monocytes 3.9 % (0.0-10.0); %Neutrophils 84.6 % (42.0-75.0); Hemoglobin 12.2 g/dL (14.0-18.0); Mean Corpuscular HGB CONC 32.3 g/dL (32.0-36.0); Mean Corpuscular Hemoglobin 32.5 pg (27.0-31.0); Platelet Count 551 thou/uL (130-400); RBC Distribution Width 11.6 % (11.5-14.5); Red Blood Cell (RBC) Count 3.76 mill/uL (4.70-6.10); White Blood Cell (WBC) Count 12.1 thou/uL (4.8-10.8)
[2021-03-04 07:19] LABS: Anion Gap 11 mmol/L (10-20); BUN (Urea Nitrogen) 9 mg/dL (8.4-25.7); Calc. Creatinine Clearance 159 mL/min (70-130); Calcium 8.7 mg/dL (7.8-10.44); Carbon Dioxide 25 mmol/L (22-29); Chloride 99 mmol/L (98-107); Glucose 188 mg/dL (70-105); Potassium 4.4 mmol/L (3.5-5.1); Sodium 131 mmol/L (136-145)
[2021-03-04] MEDS: Cilostazol 100 MG TAB PO SCH ×2 (08:02→15:45)
[2021-03-04] MEDS: Metoprolol Tartrate 50 MG TAB PO SCH (08:02)
[2021-03-04] MEDS: Aspirin 81 mg Enteric Coated Tablet PO SCH (08:02)
[2021-03-04] MEDS: Saccharomyces boulardii 250 MG CAP PO SCH (08:02)
[2021-03-04] MEDS: Enoxaparin Sodium 40 MG/0.4 ML SYRINGE SC SCH (08:03)
[2021-03-04] MEDS: Gabapentin 300 MG CAP PO SCH (08:03)
[2021-03-04] MEDS: Clopidogrel Bisulfate 75 MG TAB PO SCH (08:03)
[2021-03-04] MEDS: Lisinopril 20 MG TAB PO SCH (08:03)
[2021-03-04] MEDS: Lantus 1000 UNITS/10 ML VIAL SC SCH (08:04)
[2021-03-04] MEDS: Polyethylene Glycol 3350 17 GM Packet PO PRN (11:39)
[2021-03-04] MEDS: Atorvastatin Calcium 40 MG TAB PO SCH (20:51)
[2021-03-05] MEDS: Lactated Ringer's 1,000 ML IV SCH (00:25)
[2021-03-05] MEDS: Piperacillin/Tazobactam 3.375 GM in Sodium Chloride 0.9% 100 ML IVPB SCH ×3 (00:25→16:53)
[2021-03-05 06:19] LABS: #Eosinphils 0.1 thou/uL (0.0-0.7); #Monocytes 0.6 thou/uL (0.11-0.59); #Neutrophils 10.5 thou/uL (1.40-6.50); %Basophils 0.1 % (0.0-1.0); %Eosinophils 0.9 % (0.0-10.0); %Lymphocytes 15.2 % (21.0-51.0); %Monocytes 4.6 % (0.0-10.0); %Neutrophils 79.2 % (42.0-75.0); Hemoglobin 12.1 g/dL (14.0-18.0); Mean Corpuscular HGB CONC 33.9 g/dL (32.0-36.0); Mean Platelet Volume 7.1 fL (7.4-10.4); Platelet Count 570 thou/uL (130-400); RBC Distribution Width 11.6 % (11.5-14.5); Red Blood Cell (RBC) Count 3.57 mill/uL (4.70-6.10); White Blood Cell (WBC) Count 13.3 thou/uL (4.8-10.8)
[2021-03-05 06:35] LABS: Anion Gap 12 mmol/L (10-20); BUN (Urea Nitrogen) 7 mg/dL (8.4-25.7); Calc. Creatinine Clearance 159 mL/min (70-130); Carbon Dioxide 22 mmol/L (22-29); Chloride 102 mmol/L (98-107); Glucose 173 mg/dL (70-105); Potassium 4.3 mmol/L (3.5-5.1); Sodium 132 mmol/L (136-145)
[2021-03-05] MEDS: Cilostazol 100 MG TAB PO SCH ×2 (06:44→16:52)
[2021-03-05] MEDS: Lisinopril 20 MG TAB PO SCH (09:45)
[2021-03-05] MEDS: Aspirin 81 mg Enteric Coated Tablet PO SCH (09:45)
[2021-03-05] MEDS: Enoxaparin Sodium 40 MG/0.4 ML SYRINGE SC SCH (09:45)
[2021-03-05] MEDS: Metoprolol Tartrate 50 MG TAB PO SCH (09:45)
[2021-03-05] MEDS: Gabapentin 300 MG CAP PO SCH (09:46)
[2021-03-05] MEDS: Lantus 1000 UNITS/10 ML VIAL SC SCH (09:47)
[2021-03-05] MEDS: Clopidogrel Bisulfate 75 MG TAB PO SCH (09:47)
[2021-03-05] MEDS: Saccharomyces boulardii 250 MG CAP PO SCH (09:47)
[2021-03-05] MEDS: HumaLOG 300 UNITS/3 ML VIAL SC PRN ×2 (12:18→16:52)
[2021-03-05] MEDS: HYDROcodone/Acetaminophen 5/325 mg Tablet PO PRN ×2 (13:45→19:37)
[2021-03-05] MEDS: Atorvastatin Calcium 40 MG TAB PO SCH (19:37)
[2021-03-06] MEDS: Piperacillin/Tazobactam 3.375 GM in Sodium Chloride 0.9% 100 ML IVPB SCH ×3 (00:04→16:44)
[2021-03-06] MEDS: HumaLOG 300 UNITS/3 ML VIAL SC PRN ×3 (05:41→16:44)
[2021-03-06] MEDS: Lantus 1000 UNITS/10 ML VIAL SC SCH (07:54)
[2021-03-06] MEDS: Enoxaparin Sodium 40 MG/0.4 ML SYRINGE SC SCH (07:55)
[2021-03-06] MEDS: Metoprolol Tartrate 50 MG TAB PO SCH (07:56)
[2021-03-06] MEDS: Gabapentin 300 MG CAP PO SCH (07:56)
[2021-03-06] MEDS: Lisinopril 20 MG TAB PO SCH (07:57)
[2021-03-06] MEDS: Aspirin 81 mg Enteric Coated Tablet PO SCH (07:57)
[2021-03-06] MEDS: Saccharomyces boulardii 250 MG CAP PO SCH (07:57)
[2021-03-06] MEDS: Clopidogrel Bisulfate 75 MG TAB PO SCH (07:57)
[2021-03-06] MEDS: Cilostazol 100 MG TAB PO SCH ×2 (07:57→16:44)
[2021-03-06] MEDS: HYDROcodone/Acetaminophen 5/325 mg Tablet PO PRN ×2 (13:35→22:20)
[2021-03-06] MEDS: Atorvastatin Calcium 40 MG TAB PO SCH (20:11)
[2021-03-07] MEDS: Piperacillin/Tazobactam 3.375 GM in Sodium Chloride 0.9% 100 ML IVPB SCH ×3 (00:24→17:14)
[2021-03-07] MEDS: HumaLOG 300 UNITS/3 ML VIAL SC PRN ×3 (05:13→17:14)
[2021-03-07] MEDS: Lantus 1000 UNITS/10 ML VIAL SC SCH (08:25)
[2021-03-07] MEDS: Cilostazol 100 MG TAB PO SCH ×2 (08:26→17:14)
[2021-03-07] MEDS: Gabapentin 300 MG CAP PO SCH (08:26)
[2021-03-07] MEDS: Aspirin 81 mg Enteric Coated Tablet PO SCH (08:26)
[2021-03-07] MEDS: Clopidogrel Bisulfate 75 MG TAB PO SCH (08:27)
[2021-03-07] MEDS: Lisinopril 20 MG TAB PO SCH (08:27)
[2021-03-07] MEDS: Enoxaparin Sodium 40 MG/0.4 ML SYRINGE SC SCH (08:27)
[2021-03-07] MEDS: Metoprolol Tartrate 50 MG TAB PO SCH (08:28)
[2021-03-07] MEDS: Saccharomyces boulardii 250 MG CAP PO SCH (08:28)
[2021-03-07] MEDS: HYDROcodone/Acetaminophen 5/325 mg Tablet PO PRN ×2 (11:01→21:02)
[2021-03-07] MEDS: Atorvastatin Calcium 40 MG TAB PO SCH (21:02)
[2021-03-08] MEDS: HYDROcodone/Acetaminophen 5/325 mg Tablet PO PRN ×3 (01:04→18:35)
[2021-03-08] MEDS: Piperacillin/Tazobactam 3.375 GM in Sodium Chloride 0.9% 100 ML IVPB SCH ×3 (01:05→17:15)
[2021-03-08] MEDS: HumaLOG 300 UNITS/3 ML VIAL SC PRN ×2 (05:16→11:57)
[2021-03-08 06:36] LABS: #Basophils 0.1 thou/uL (0.0-0.2); #Eosinphils 0.1 thou/uL (0.0-0.7); #Lymphocytes 2.3 thou/uL (1.20-3.40); #Monocytes 0.4 thou/uL (0.11-0.59); #Neutrophils 8.5 thou/uL (1.40-6.50); %Basophils 0.6 % (0.0-1.0); %Monocytes 3.9 % (0.0-10.0); %Neutrophils 74.5 % (42.0-75.0); Hemoglobin 12.8 g/dL (14.0-18.0); Mean Platelet Volume 6.9 fL (7.4-10.4); Platelet Count 746 thou/uL (130-400); RBC Distribution Width 11.7 % (11.5-14.5); Red Blood Cell (RBC) Count 4.13 mill/uL (4.70-6.10); White Blood Cell (WBC) Count 11.4 thou/uL (4.8-10.8)
[2021-03-08 06:55] LABS: Anion Gap 11 mmol/L (10-20); BUN (Urea Nitrogen) 9 mg/dL (8.4-25.7); Calc. Creatinine Clearance 144 mL/min (70-130); Calcium 9.6 mg/dL (7.8-10.44); Carbon Dioxide 28 mmol/L (22-29); Chloride 99 mmol/L (98-107); Glucose 142 mg/dL (70-105); Sodium 134 mmol/L (136-145)
[2021-03-08] MEDS: Cilostazol 100 MG TAB PO SCH ×2 (08:51→17:19)
[2021-03-08] MEDS: Metoprolol Tartrate 50 MG TAB PO SCH (08:52)
[2021-03-08] MEDS: Aspirin 81 mg Enteric Coated Tablet PO SCH (08:52)
[2021-03-08] MEDS: Saccharomyces boulardii 250 MG CAP PO SCH (08:52)
[2021-03-08] MEDS: Lantus 1000 UNITS/10 ML VIAL SC SCH (08:52)
[2021-03-08] MEDS: Clopidogrel Bisulfate 75 MG TAB PO SCH (08:52)
[2021-03-08] MEDS: Gabapentin 300 MG CAP PO SCH (08:53)
[2021-03-08] MEDS: Enoxaparin Sodium 40 MG/0.4 ML SYRINGE SC SCH (08:54)
[2021-03-08] MEDS: Lisinopril 20 MG TAB PO SCH (08:55)
[2021-03-08] MEDS: Atorvastatin Calcium 40 MG TAB PO SCH (21:27)
[2021-03-09] MEDS: Piperacillin/Tazobactam 3.375 GM in Sodium Chloride 0.9% 100 ML IVPB SCH ×3 (01:15→16:09)
[2021-03-09] MEDS: HYDROcodone/Acetaminophen 5/325 mg Tablet PO PRN ×2 (06:44→20:26)
[2021-03-09] MEDS: Enoxaparin Sodium 40 MG/0.4 ML SYRINGE SC SCH ×2 (09:10→09:25)
[2021-03-09] MEDS: Gabapentin 300 MG CAP PO SCH (09:11)
[2021-03-09] MEDS: Lisinopril 20 MG TAB PO SCH (09:13)
[2021-03-09] MEDS: Clopidogrel Bisulfate 75 MG TAB PO SCH (09:13)
[2021-03-09] MEDS: Aspirin 81 mg Enteric Coated Tablet PO SCH (09:13)
[2021-03-09] MEDS: Saccharomyces boulardii 250 MG CAP PO SCH (09:13)
[2021-03-09] MEDS: Metoprolol Tartrate 50 MG TAB PO SCH (09:14)
[2021-03-09] MEDS: Lantus 1000 UNITS/10 ML VIAL SC SCH (09:15)
[2021-03-09] MEDS: Cilostazol 100 MG TAB PO SCH ×2 (09:29→16:09)
[2021-03-09] MEDS: HumaLOG 300 UNITS/3 ML VIAL SC PRN ×2 (12:22→17:16)
[2021-03-09 17:44] LABS: SARS-CoV-2 NAA Rapid Test Not Detected (NotDetected)
[2021-03-09] MEDS: Atorvastatin Calcium 40 MG TAB PO SCH (20:27)
[2021-03-10] MEDS: Piperacillin/Tazobactam 3.375 GM in Sodium Chloride 0.9% 100 ML IVPB SCH ×3 (01:14→17:09)
[2021-03-10] MEDS: Aspirin 81 mg Enteric Coated Tablet PO SCH (08:07)
[2021-03-10] MEDS: Cilostazol 100 MG TAB PO SCH ×2 (08:07→17:09)
[2021-03-10] MEDS: Enoxaparin Sodium 40 MG/0.4 ML SYRINGE SC SCH (08:07)
[2021-03-10] MEDS: Lantus 1000 UNITS/10 ML VIAL SC SCH (08:07)
[2021-03-10] MEDS: Saccharomyces boulardii 250 MG CAP PO SCH (08:08)
[2021-03-10] MEDS: Lisinopril 20 MG TAB PO SCH (08:09)
[2021-03-10 08:26] LABS: #Basophils 0.1 thou/uL (0.0-0.2); #Eosinphils 0.2 thou/uL (0.0-0.7); #Lymphocytes 1.7 thou/uL (1.20-3.40); #Monocytes 0.6 thou/uL (0.11-0.59); #Neutrophils 8.1 thou/uL (1.40-6.50); %Basophils 0.6 % (0.0-1.0); %Eosinophils 1.6 % (0.0-10.0); %Lymphocytes 15.9 % (21.0-51.0); %Monocytes 5.3 % (0.0-10.0); %Neutrophils 76.7 % (42.0-75.0); Mean Corpuscular HGB CONC 32.7 g/dL (32.0-36.0); Mean Corpuscular Hemoglobin 33.2 pg (27.0-31.0); Platelet Count 603 thou/uL (130-400); RBC Distribution Width 11.7 % (11.5-14.5); Red Blood Cell (RBC) Count 3.63 mill/uL (4.70-6.10); White Blood Cell (WBC) Count 10.6 thou/uL (4.8-10.8)
[2021-03-10 08:47] LABS: Anion Gap 10 mmol/L (10-20); BUN (Urea Nitrogen) 8 mg/dL (8.4-25.7); Calc. Creatinine Clearance 142 mL/min (70-130); Calcium 9.1 mg/dL (7.8-10.44); Carbon Dioxide 28 mmol/L (22-29); Chloride 101 mmol/L (98-107); Glucose 195 mg/dL (70-105); Potassium 4.3 mmol/L (3.5-5.1); Sodium 135 mmol/L (136-145)
[2021-03-10] MEDS: Gabapentin 300 MG CAP PO SCH (09:39)
[2021-03-10] MEDS: Metoprolol Tartrate 50 MG TAB PO SCH (09:40)
[2021-03-10] MEDS ORDERED: Fentanyl 100 MCG/2 ML VIAL ONE ×3 (12:25→15:20)
[2021-03-10] MEDS ORDERED: Midazolam HCl 2 mg/2 ml Vial ONE (12:25)
[2021-03-10] MEDS ORDERED: Ketorolac Tromethamine 30 MG/ML VIAL ONE (13:00)
[2021-03-10] MEDS ORDERED: Ondansetron PF 4 MG/2 ML Vial ONE (13:00)
[2021-03-10] MEDS ORDERED: PHENYLEPHRINE-NS 100 MCG/ML 10 ML SYRINGE ONE (13:00)
[2021-03-10] MEDS ORDERED: Bupivacaine HCl 0.5%/Epinephrine 1:200,000/PF 30 ml Vial ONE (13:00)
[2021-03-10] MEDS ORDERED: ePHEDrine 50 MG/ML VIAL ONE (13:00)
[2021-03-10] MEDS ORDERED: Dexamethasone 20 MG/5 ML VIAL ONE (13:00)
[2021-03-10] MEDS ORDERED: Promethazine HCl 25 MG/ML VIAL IM PRN (15:24)
[2021-03-10] MEDS ORDERED: Promethazine HCl 25 MG/ML VIAL IVPB PRN (15:24)
[2021-03-10] MEDS ORDERED: Meperidine HCl/PF 25 MG/ML VIAL SLOW IVP PRN (15:24)
[2021-03-10] MEDS ORDERED: Ondansetron HCl/PF 4 MG/2 ML Vial IVP PRN (15:24)
[2021-03-10] MEDS ORDERED: HYDROmorphone 2 MG/ML VIAL SLOW IVP PRN (15:24)
[2021-03-10] MEDS: HYDROcodone/Acetaminophen 5/325 mg Tablet PO PRN ×2 (16:25→20:10)
[2021-03-10] MEDS: HumaLOG 300 UNITS/3 ML VIAL SC PRN ×2 (17:26→20:11)
[2021-03-10] MEDS ORDERED: Temazepam 15 MG CAP PO PRN (18:40)
[2021-03-10] MEDS: Atorvastatin Calcium 40 MG TAB PO SCH (20:10)
[2021-03-11] MEDS: HYDROcodone/Acetaminophen 5/325 mg Tablet PO PRN ×5 (01:50→22:03)
[2021-03-11] MEDS: Piperacillin/Tazobactam 3.375 GM in Sodium Chloride 0.9% 100 ML IVPB SCH (01:50)
[2021-03-11 06:15] LABS: #Lymphocytes 1.3 thou/uL (1.20-3.40); #Monocytes 0.8 thou/uL (0.11-0.59); #Neutrophils 16.3 thou/uL (1.40-6.50); %Basophils 0.1 % (0.0-1.0); %Eosinophils 0.1 % (0.0-10.0); %Lymphocytes 7.3 % (21.0-51.0); %Monocytes 4.2 % (0.0-10.0); %Neutrophils 88.3 % (42.0-75.0); Hemoglobin 10.9 g/dL (14.0-18.0); Mean Corpuscular HGB CONC 33.1 g/dL (32.0-36.0); Mean Corpuscular Hemoglobin 33.7 pg (27.0-31.0); Platelet Count 577 thou/uL (130-400); RBC Distribution Width 11.6 % (11.5-14.5); Red Blood Cell (RBC) Count 3.22 mill/uL (4.70-6.10); White Blood Cell (WBC) Count 18.5 thou/uL (4.8-10.8)
[2021-03-11] MEDS: Lisinopril 20 MG TAB PO SCH (08:19)
[2021-03-11] MEDS: Aspirin 81 mg Enteric Coated Tablet PO SCH (08:19)
[2021-03-11] MEDS: Cilostazol 100 MG TAB PO SCH ×2 (08:19→17:19)
[2021-03-11] MEDS: Metoprolol Tartrate 50 MG TAB PO SCH (08:20)
[2021-03-11] MEDS: Saccharomyces boulardii 250 MG CAP PO SCH (08:20)
[2021-03-11] MEDS: Gabapentin 300 MG CAP PO SCH (08:20)
[2021-03-11 08:22] LABS: Anion Gap 9 mmol/L (10-20); BUN (Urea Nitrogen) 11 mg/dL (8.4-25.7); Calc. Creatinine Clearance 153 mL/min (70-130); Calcium 8.6 mg/dL (7.8-10.44); Carbon Dioxide 26 mmol/L (22-29); Chloride 101 mmol/L (98-107); Glucose 196 mg/dL (70-105); Potassium 3.8 mmol/L (3.5-5.1); Sodium 132 mmol/L (136-145)
[2021-03-11] MEDS: Enoxaparin Sodium 40 MG/0.4 ML SYRINGE SC SCH (08:24)
[2021-03-11] MEDS: Lantus 1000 UNITS/10 ML VIAL SC SCH (09:49)
[2021-03-11] MEDS ORDERED: HYDROcodone/Acetaminophen 5/325 mg Tablet PO PRN (11:14)
[2021-03-11] MEDS: HumaLOG 300 UNITS/3 ML VIAL SC PRN (13:10)
[2021-03-11] MEDS: Atorvastatin Calcium 40 MG TAB PO SCH (19:48)
[2021-03-12] MEDS: HYDROcodone/Acetaminophen 5/325 mg Tablet PO PRN ×3 (05:02→16:12)
[2021-03-12] MEDS: HumaLOG 300 UNITS/3 ML VIAL SC PRN ×2 (05:04→12:10)
[2021-03-12 05:29] LABS: #Basophils 0.1 thou/uL (0.0-0.2); #Eosinphils 0.1 thou/uL (0.0-0.7); #Lymphocytes 1.6 thou/uL (1.20-3.40); #Monocytes 0.5 thou/uL (0.11-0.59); #Neutrophils 10.7 thou/uL (1.40-6.50); %Basophils 0.5 % (0.0-1.0); %Eosinophils 0.8 % (0.0-10.0); %Lymphocytes 12.2 % (21.0-51.0); %Monocytes 3.9 % (0.0-10.0); %Neutrophils 82.6 % (42.0-75.0); Hemoglobin 10.8 g/dL (14.0-18.0); Mean Corpuscular HGB CONC 33.6 g/dL (32.0-36.0); Mean Corpuscular Hemoglobin 33.4 pg (27.0-31.0); Mean Corpuscular Volume 99.3 fL (78.0-98.0); Platelet Count 553 thou/uL (130-400); RBC Distribution Width 11.6 % (11.5-14.5); Red Blood Cell (RBC) Count 3.23 mill/uL (4.70-6.10)
[2021-03-12 05:49] LABS: Anion Gap 11 mmol/L (10-20); BUN (Urea Nitrogen) 7 mg/dL (8.4-25.7); Calc. Creatinine Clearance 171 mL/min (70-130); Calcium 8.7 mg/dL (7.8-10.44); Carbon Dioxide 27 mmol/L (22-29); Chloride 100 mmol/L (98-107); Glucose 182 mg/dL (70-105); Potassium 4.3 mmol/L (3.5-5.1); Sodium 134 mmol/L (136-145)
[2021-03-12] MEDS: Lisinopril 20 MG TAB PO SCH (07:53)
[2021-03-12] MEDS: Cilostazol 100 MG TAB PO SCH ×2 (07:53→16:11)
[2021-03-12] MEDS: Aspirin 81 mg Enteric Coated Tablet PO SCH (07:53)
[2021-03-12] MEDS: Metoprolol Tartrate 50 MG TAB PO SCH (07:53)
[2021-03-12] MEDS: Saccharomyces boulardii 250 MG CAP PO SCH (07:53)
[2021-03-12] MEDS: Gabapentin 300 MG CAP PO SCH (07:53)
[2021-03-12] MEDS: Enoxaparin Sodium 40 MG/0.4 ML SYRINGE SC SCH (07:55)
[2021-03-12] MEDS: Lantus 1000 UNITS/10 ML VIAL SC SCH (07:55)
[2021-03-12] MEDS: Polyethylene Glycol 3350 17 GM Packet PO PRN (12:09)
[2021-03-12] MEDS: Atorvastatin Calcium 40 MG TAB PO SCH (19:59)
[2021-03-13] MEDS: HYDROcodone/Acetaminophen 5/325 mg Tablet PO PRN (03:36)
[2021-03-13] MEDS: Gabapentin 300 MG CAP PO SCH (08:08)
[2021-03-13] MEDS: Cilostazol 100 MG TAB PO SCH ×2 (08:08→17:38)
[2021-03-13] MEDS: Aspirin 81 mg Enteric Coated Tablet PO SCH (08:08)
[2021-03-13] MEDS: Saccharomyces boulardii 250 MG CAP PO SCH (08:09)
[2021-03-13] MEDS: Lisinopril 20 MG TAB PO SCH (08:09)
[2021-03-13] MEDS: Metoprolol Tartrate 50 MG TAB PO SCH (08:09)
[2021-03-13] MEDS: Enoxaparin Sodium 40 MG/0.4 ML SYRINGE SC SCH (08:09)
[2021-03-13] MEDS: Lantus 1000 UNITS/10 ML VIAL SC SCH (08:21)
[2021-03-13] MEDS: HumaLOG 300 UNITS/3 ML VIAL SC PRN (12:53)
[2021-03-13 16:52] VITALS: BP 142/79; TEMP 98
== END 2021-03-13 18:30 | DRG 854 ==
LOC: ERS 10:51 → OBSVTOIN 16:25 → T4-B 16:25
PROVIDERS: ADMIT Nurse Practitioner Family; ATTEND Internal Medicine
PROC: 0LBW0ZZ Excision of Left Foot Tendon, Open Approach (ICD-10-PCS; 2021-02-27)
PROC: 047L3DZ Dilation of Left Femoral Artery with Intraluminal Device, Percutaneous Approach (ICD-10-PCS; 2021-03-03)
PROC: 047N3ZZ Dilation of Left Popliteal Artery, Percutaneous Approach (ICD-10-PCS; 2021-03-03)
PROC: B41D1ZZ Fluoroscopy of Aorta and Bilateral Lower Extremity Arteries using Low Osmolar Contrast (ICD-10-PCS; 2021-03-03)
PROC: 0Y6J0Z1 Detachment at Left Lower Leg, High, Open Approach (ICD-10-PCS; principal; 2021-03-10)
DX: A41.9 Sepsis, unspecified organism (principal); E11.52 Type 2 diabetes mellitus with diabetic peripheral angiopathy with gangrene; I70.262 Atherosclerosis of native arteries of extremities with gangrene, left leg; L03.116 Cellulitis of left lower limb; L02.612 Cutaneous abscess of left foot; E87.1 Hypo-osmolality and hyponatremia; Z20.822 Contact with and (suspected) exposure to COVID-19; E11.621 Type 2 diabetes mellitus with foot ulcer; L97.529 Non-pressure chronic ulcer of other part of left foot with unspecified severity; I25.10 Atherosclerotic heart disease of native coronary artery without angina pectoris; E78.5 Hyperlipidemia, unspecified; E11.42 Type 2 diabetes mellitus with diabetic polyneuropathy; I70.202 Unspecified atherosclerosis of native arteries of extremities, left leg; M65.9 Synovitis and tenosynovitis, unspecified; M71.9 Bursopathy, unspecified; E11.620 Type 2 diabetes mellitus with diabetic dermatitis; E11.628 Type 2 diabetes mellitus with other skin complications; K21.9 Gastro-esophageal reflux disease without esophagitis; Z95.5 Presence of coronary angioplasty implant and graft; Z95.828 Presence of other vascular implants and grafts; Z95.1 Presence of aortocoronary bypass graft; Z89.421 Acquired absence of other right toe(s); Z87.891 Personal history of nicotine dependence; Z88.0 Allergy status to penicillin; Z83.3 Family history of diabetes mellitus; Z79.899 Other long term (current) drug therapy; Z79.4 Long term (current) use of insulin; Z79.82 Long term (current) use of aspirin; Z79.02 Long term (current) use of antithrombotics/antiplatelets
CPT/HCPCS: 36005; 36415; 36416; 37226; 75635; 76942; 80048; 80053; 80202; 83605; 85025; 85347; 87040; 87070; 87077; 87186; 87205; 88307; 93880; 93923; 96365; 96367; 96375; C1725; J0295; J0692; J0694; J1100; J1644; J1650; J1815; J1885; J2001; J2250; J2270; J2405; J2543; J2704; J2720; J3010; J3370; J3490; Q9967; U0002; U0005

== ENCOUNTER 2021-04-05 08:12 | Inpatient (IN) | payer MEDICARE, BC ==
[2021-04-05 09:36] LABS: Hemoglobin 12.1 g/dL (14.0-18.0); Mean Corpuscular HGB CONC 34.7 g/dL (32.0-36.0); Mean Corpuscular Hemoglobin 33.9 pg (27.0-31.0); Mean Corpuscular Volume 97.6 fL (78.0-98.0); Mean Platelet Volume 7.6 fL (7.4-10.4); Platelet Count 435 thou/uL (130-400); RBC Distribution Width 13.7 % (11.5-14.5); Red Blood Cell (RBC) Count 3.58 mill/uL (4.70-6.10); White Blood Cell (WBC) Count 18.3 thou/uL (4.8-10.8)
[2021-04-05] MEDS ORDERED: Iopamidol-370 76% 500 ML 1 ML ONE (09:53)
[2021-04-05 09:57] LABS: Band 21 % (5-11); Lymphocytes 7 % (21-51); MDiff Complete? YES; Monocytes 3 % (0-10); Neutrophil 69 % (42-75); Platelet Morphology Comment Appears Increased; RBC Morphology Normal
[2021-04-05 10:01] LABS: ALT (SGPT) 92 U/L (8-55); AST (SGOT) 67 U/L (5-34); Albumin 3.5 g/dL (3.5-5.0); Alkaline Phosphatase 125 U/L (40-110); Anion Gap 18 mmol/L (10-20); BUN (Urea Nitrogen) 12 mg/dL (8.4-25.7); Bilirubin, Total 0.9 mg/dL (0.2-1.2); Calc. Creatinine Clearance 0 mL/min (70-130); Calcium 9.4 mg/dL (7.8-10.44); Carbon Dioxide 21 mmol/L (22-29); Chloride 95 mmol/L (98-107); Globulin 4.3 g/dL (2.4-3.5); Glucose 163 mg/dL (70-105); Lipase 43 U/L (8-78); Potassium 3.7 mmol/L (3.5-5.1); Protein, Total 7.8 g/dL (6.0-8.3); Sodium 130 mmol/L (136-145)
[2021-04-05] MEDS ORDERED: Sodium Chloride 0.9% 0 ML ONE (11:10)
[2021-04-05] MEDS ORDERED: metroNIDAZOLE 500 MG/100 ML BAG ONE (11:10)
[2021-04-05] MEDS ORDERED: Morphine 4 MG/ML VIAL ONE (11:16)
[2021-04-05] MEDS ORDERED: Aztreonam 1 GM in Sodium Chloride 0.9% 100 ML IVPB SCH (11:30)
[2021-04-05 13:15] LABS: SARS-CoV-2 NAA Rapid Test Not Detected (NotDetected)
[2021-04-05] MEDS ORDERED: Fentanyl 100 MCG/2 ML VIAL ONE ×4 (14:01→17:43)
[2021-04-05] MEDS ORDERED: Midazolam HCl 2 mg/2 ml Vial ONE (14:12)
[2021-04-05 14:43] LABS: Lactic Acid 3.2 mmol/L (0.5-2.2)
[2021-04-05] MEDS ORDERED: PHENYLEPHRINE-NS 100 MCG/ML 10 ML SYRINGE ONE (14:46)
[2021-04-05] MEDS ORDERED: PROPOFOL 200 MG/20 ML VIAL ONE (14:46)
[2021-04-05] MEDS ORDERED: Bupivacaine HCl 0.5%/Epinephrine 1:200,000/PF 30 ml Vial ONE (14:46)
[2021-04-05] MEDS ORDERED: Rocuronium Bromide 10 MG/ML (10ML VIAL) ONE (14:46)
[2021-04-05] MEDS ORDERED: Glycopyrrolate 0.2 MG/ML 5 ML SYRINGE ONE (14:46)
[2021-04-05] MEDS ORDERED: Dexamethasone 20 MG/5 ML VIAL ONE (14:46)
[2021-04-05] MEDS ORDERED: Bupivacaine/Epinephrine 0.25% 30 ML VIAL ONE (14:46)
[2021-04-05] MEDS ORDERED: Ondansetron PF 4 MG/2 ML Vial ONE (14:46)
[2021-04-05] MEDS ORDERED: Lidocaine 1% PF 5 ML VIAL ONE (14:46)
[2021-04-05] MEDS ORDERED: Phenylephrine 10 MG/ML VIAL ONE (14:52)
[2021-04-05] MEDS ORDERED: Norepinephrine 4 MG/4 ML VIAL ONE (14:58)
[2021-04-05] MEDS ORDERED: Ketamine 50 MG/ML (10ML VIAL) ONE (16:44)
[2021-04-05] MEDS ORDERED: Promethazine HCl 25 MG/ML VIAL IM PRN ×2 (17:07→17:29)
[2021-04-05] MEDS ORDERED: Promethazine HCl 25 MG/ML VIAL IVPB PRN (17:07)
[2021-04-05] MEDS ORDERED: Ondansetron HCl/PF 4 MG/2 ML Vial IVP PRN (17:07)
[2021-04-05] MEDS ORDERED: Lactated Ringer's 1,000 ML IV SCH (17:29)
[2021-04-05] MEDS ORDERED: Morphine 2 MG/ML VIAL SLOW IVP PRN (17:29)
[2021-04-05] MEDS ORDERED: hydrALAZINE 20 MG/ML VIAL SLOW IVP PRN (17:29)
[2021-04-05] MEDS ORDERED: Morphine 4 MG/ML VIAL SLOW IVP PRN (17:29)
[2021-04-05] MEDS: Lactated Ringer's 1,000 ML IV SCH (18:55)
[2021-04-05] MEDS: metroNIDAZOLE 500 MG in Premix Bag 1 BAG IVPB SCH (19:03)
[2021-04-05] MEDS: Ondansetron PF 4 MG/2 ML Vial IVP PRN (19:07)
[2021-04-05] MEDS: HYDROcodone/Acetaminophen 7.5/325 mg Tablet PO PRN (19:07)
[2021-04-05] MEDS: metFORMIN 500 MG TAB PO SCH ×2 (19:07→19:11)
[2021-04-05] MEDS ORDERED: Zolpidem Tartrate 5 MG TAB PO PRN (23:18)
[2021-04-05] MEDS: Famotidine 20 MG TAB PO SCH (23:24)
[2021-04-05] MEDS: Famotidine/PF 20 mg/2ml Vial SLOW IVP SCH (23:24)
[2021-04-05 23:28] VITALS: BMI 31.5
[2021-04-06] MEDS: metroNIDAZOLE 500 MG in Premix Bag 1 BAG IVPB SCH ×2 (00:55→05:46)
[2021-04-06] MEDS: Lactated Ringer's 1,000 ML IV SCH ×3 (00:56→20:20)
[2021-04-06 03:43] LABS: Hemoglobin A1c 6.4 % (4.0-6.0)
[2021-04-06 03:48] LABS: Anion Gap 11 mmol/L (10-20); BUN (Urea Nitrogen) 11 mg/dL (8.4-25.7); Calc. Creatinine Clearance 173 mL/min (70-130); Calcium 8.1 mg/dL (7.8-10.44); Carbon Dioxide 23 mmol/L (22-29); Chloride 102 mmol/L (98-107); Cholesterol 85 mg/dl (< 200 Desired); Glucose 98 mg/dL (70-105); HDL Cholesterol 28 mg/dL (>60 Neg Risk); LDL Cholesterol, Calculated 45 mg/dL; Potassium 3.7 mmol/L (3.5-5.1); Sodium 132 mmol/L (136-145); Triglycerides 61 mg/dL (Less than 150)
[2021-04-06] MEDS ORDERED: VANCOMYCIN 2 GRAM/400 ML BAG 2 GM in Premix Bag 1 BAG IVPB SCH (04:00)
[2021-04-06 04:02] LABS: #Lymphocytes 1.7 thou/uL (1.20-3.40); #Monocytes 0.5 thou/uL (0.11-0.59); %Basophils 0.1 % (0.0-1.0); %Eosinophils 0.1 % (0.0-10.0); %Lymphocytes 12.8 % (21.0-51.0); %Monocytes 3.5 % (0.0-10.0); %Neutrophils 83.5 % (42.0-75.0); Hemoglobin 9.1 g/dL (14.0-18.0); Mean Corpuscular HGB CONC 34.2 g/dL (32.0-36.0); Mean Corpuscular Volume 99.4 fL (78.0-98.0); Mean Platelet Volume 7.7 fL (7.4-10.4); Platelet Count 267 thou/uL (130-400); RBC Distribution Width 13.9 % (11.5-14.5); Red Blood Cell (RBC) Count 2.68 mill/uL (4.70-6.10); White Blood Cell (WBC) Count 13.1 thou/uL (4.8-10.8)
[2021-04-06] MEDS: Acetaminophen 325 MG TAB PO PRN (05:51)
[2021-04-06] MEDS: metFORMIN 500 MG TAB PO SCH ×2 (08:14→08:15)
[2021-04-06] MEDS ORDERED: Metoprolol Tartrate 50 MG TAB PO SCH (09:00)
[2021-04-06] MEDS: Enoxaparin Sodium 40 MG/0.4 ML SYRINGE SC SCH (09:00)
[2021-04-06] MEDS: Famotidine/PF 20 mg/2ml Vial SLOW IVP SCH ×2 (09:00→23:41)
[2021-04-06] MEDS: Famotidine 20 MG TAB PO SCH ×2 (10:05→22:00)
[2021-04-06] MEDS: Saccharomyces boulardii 250 MG CAP PO SCH (10:06)
[2021-04-06 10:28] LABS: #Lymphocytes 0.8 thou/uL (1.20-3.40); #Monocytes 0.5 thou/uL (0.11-0.59); #Neutrophils 12.3 thou/uL (1.40-6.50); %Basophils 0.3 % (0.0-1.0); %Eosinophils 0.1 % (0.0-10.0); %Lymphocytes 5.8 % (21.0-51.0); %Monocytes 3.7 % (0.0-10.0); %Neutrophils 90.1 % (42.0-75.0); Hemoglobin 9.6 g/dL (14.0-18.0); Mean Corpuscular HGB CONC 33.5 g/dL (32.0-36.0); Mean Corpuscular Hemoglobin 33.7 pg (27.0-31.0); Mean Platelet Volume 8.2 fL (7.4-10.4); Platelet Count 280 thou/uL (130-400); Red Blood Cell (RBC) Count 2.84 mill/uL (4.70-6.10); White Blood Cell (WBC) Count 13.7 thou/uL (4.8-10.8)
[2021-04-06] MEDS: HYDROcodone/Acetaminophen 7.5/325 mg Tablet PO PRN ×2 (11:07→22:00)
[2021-04-06] MEDS: Ondansetron PF 4 MG/2 ML Vial IVP PRN (11:12)
[2021-04-06] MEDS ORDERED: HYDROcodone/Acetaminophen 7.5/325 mg Tablet PO PRN (14:59)
[2021-04-06] MEDS: VANCOMYCIN 1.25 GM/250 ML BAG 1.25 GM in Premix Bag 1 BAG IVPB SCH (16:47)
[2021-04-07] MEDS: Lactated Ringer's 1,000 ML IV SCH ×3 (04:22→20:44)
[2021-04-07] MEDS: HYDROcodone/Acetaminophen 7.5/325 mg Tablet PO PRN ×3 (04:23→20:46)
[2021-04-07] MEDS: VANCOMYCIN 1.25 GM/250 ML BAG 1.25 GM in Premix Bag 1 BAG IVPB SCH (04:25)
[2021-04-07] MEDS: Saccharomyces boulardii 250 MG CAP PO SCH (09:05)
[2021-04-07] MEDS: Famotidine 20 MG TAB PO SCH ×2 (09:06→20:44)
[2021-04-07] MEDS: Enoxaparin Sodium 40 MG/0.4 ML SYRINGE SC SCH (09:06)
[2021-04-07] MEDS: Famotidine/PF 20 mg/2ml Vial SLOW IVP SCH ×2 (09:06→20:45)
[2021-04-07] MEDS: metFORMIN 500 MG TAB PO SCH (09:06)
[2021-04-07 09:55] LABS: #Lymphocytes 1.4 thou/uL (1.20-3.40); #Monocytes 0.3 thou/uL (0.11-0.59); #Neutrophils 12.3 thou/uL (1.40-6.50); %Basophils 0.1 % (0.0-1.0); %Eosinophils 0.2 % (0.0-10.0); %Lymphocytes 9.6 % (21.0-51.0); %Monocytes 2.4 % (0.0-10.0); %Neutrophils 87.7 % (42.0-75.0); Hemoglobin 8.8 g/dL (14.0-18.0); Mean Corpuscular HGB CONC 33.7 g/dL (32.0-36.0); Mean Corpuscular Hemoglobin 33.6 pg (27.0-31.0); Mean Corpuscular Volume 99.8 fL (78.0-98.0); Mean Platelet Volume 8.3 fL (7.4-10.4); Platelet Count 284 thou/uL (130-400); RBC Distribution Width 13.6 % (11.5-14.5); Red Blood Cell (RBC) Count 2.61 mill/uL (4.70-6.10)
[2021-04-07 10:07] LABS: Anion Gap 10 mmol/L (10-20); BUN (Urea Nitrogen) 9 mg/dL (8.4-25.7); Calc. Creatinine Clearance 197 mL/min (70-130); Calcium 8.1 mg/dL (7.8-10.44); Carbon Dioxide 27 mmol/L (22-29); Chloride 97 mmol/L (98-107); Glucose 161 mg/dL (70-105); Potassium 3.7 mmol/L (3.5-5.1); Sodium 130 mmol/L (136-145)
[2021-04-07] MEDS: metroNIDAZOLE 500 MG in Premix Bag 1 BAG IVPB SCH ×2 (11:03→17:50)
[2021-04-07 15:27] LABS: Vancomycin, Trough 7.8 ug/mL
[2021-04-08] MEDS: metroNIDAZOLE 500 MG in Premix Bag 1 BAG IVPB SCH ×3 (01:36→19:01)
[2021-04-08] MEDS: Lactated Ringer's 1,000 ML IV SCH ×3 (01:36→20:33)
[2021-04-08 06:38] LABS: #Eosinphils 0.1 thou/uL (0.0-0.7); #Monocytes 0.4 thou/uL (0.11-0.59); #Neutrophils 9.8 thou/uL (1.40-6.50); %Basophils 0.1 % (0.0-1.0); %Eosinophils 0.5 % (0.0-10.0); %Lymphocytes 8.5 % (21.0-51.0); %Monocytes 3.7 % (0.0-10.0); %Neutrophils 87.2 % (42.0-75.0); Hemoglobin 8.5 g/dL (14.0-18.0); Mean Corpuscular HGB CONC 34.3 g/dL (32.0-36.0); Mean Corpuscular Hemoglobin 34.4 pg (27.0-31.0); Mean Platelet Volume 8.3 fL (7.4-10.4); Platelet Count 266 thou/uL (130-400); RBC Distribution Width 13.7 % (11.5-14.5); Red Blood Cell (RBC) Count 2.49 mill/uL (4.70-6.10); White Blood Cell (WBC) Count 11.2 thou/uL (4.8-10.8)
[2021-04-08 07:04] LABS: Anion Gap 12 mmol/L (10-20); BUN (Urea Nitrogen) 6 mg/dL (8.4-25.7); Calc. Creatinine Clearance 204 mL/min (70-130); Calcium 7.9 mg/dL (7.8-10.44); Carbon Dioxide 26 mmol/L (22-29); Chloride 99 mmol/L (98-107); Glucose 118 mg/dL (70-105); Potassium 3.6 mmol/L (3.5-5.1); Sodium 133 mmol/L (136-145)
[2021-04-08] MEDS: metFORMIN 500 MG TAB PO SCH ×4 (07:42→18:57)
[2021-04-08] MEDS: Famotidine/PF 20 mg/2ml Vial SLOW IVP SCH ×2 (08:29→20:33)
[2021-04-08] MEDS: Enoxaparin Sodium 40 MG/0.4 ML SYRINGE SC SCH (08:29)
[2021-04-08] MEDS: Saccharomyces boulardii 250 MG CAP PO SCH (08:29)
[2021-04-08] MEDS: Famotidine 20 MG TAB PO SCH ×2 (09:53→20:32)
[2021-04-08] MEDS: Polyethylene Glycol 3350 17 GM Packet PO SCH (09:54)
[2021-04-08] MEDS: HYDROcodone/Acetaminophen 7.5/325 mg Tablet PO PRN ×2 (09:54→20:32)
[2021-04-08] MEDS: Metoprolol Tartrate 25 MG TAB PO SCH (20:32)
[2021-04-09] MEDS: metroNIDAZOLE 500 MG in Premix Bag 1 BAG IVPB SCH ×2 (00:51→09:56)
[2021-04-09] MEDS: HYDROcodone/Acetaminophen 7.5/325 mg Tablet PO PRN ×3 (02:25→16:56)
[2021-04-09] MEDS: Lactated Ringer's 1,000 ML IV SCH ×3 (06:25→16:52)
[2021-04-09] MEDS: Famotidine 20 MG TAB PO SCH ×2 (09:46→21:17)
[2021-04-09] MEDS: Saccharomyces boulardii 250 MG CAP PO SCH (09:46)
[2021-04-09] MEDS: Metoprolol Tartrate 25 MG TAB PO SCH ×2 (09:46→21:17)
[2021-04-09] MEDS: metFORMIN 500 MG TAB PO SCH ×2 (09:47→16:59)
[2021-04-09] MEDS: Famotidine/PF 20 mg/2ml Vial SLOW IVP SCH (09:47)
[2021-04-09] MEDS: Polyethylene Glycol 3350 17 GM Packet PO SCH (09:48)
[2021-04-09] MEDS: Enoxaparin Sodium 40 MG/0.4 ML SYRINGE SC SCH (10:03)
[2021-04-09] MEDS: metroNIDAZOLE 500 MG TAB PO SCH ×2 (16:58→21:17)
[2021-04-09] MEDS: Cilostazol 100 MG TAB PO SCH (16:59)
[2021-04-10 06:05] LABS: #Eosinphils 0.1 thou/uL (0.0-0.7); #Lymphocytes 0.9 thou/uL (1.20-3.40); #Monocytes 0.7 thou/uL (0.11-0.59); #Neutrophils 7.3 thou/uL (1.40-6.50); %Basophils 0.1 % (0.0-1.0); %Eosinophils 1.5 % (0.0-10.0); %Lymphocytes 10.3 % (21.0-51.0); %Monocytes 7.4 % (0.0-10.0); %Neutrophils 80.7 % (42.0-75.0); Hemoglobin 9.1 g/dL (14.0-18.0); Mean Corpuscular HGB CONC 33.7 g/dL (32.0-36.0); Mean Platelet Volume 7.8 fL (7.4-10.4); Platelet Count 331 thou/uL (130-400); RBC Distribution Width 13.5 % (11.5-14.5); Red Blood Cell (RBC) Count 2.67 mill/uL (4.70-6.10); White Blood Cell (WBC) Count 9.1 thou/uL (4.8-10.8)
[2021-04-10] MEDS: Insulin Regular 300 UNITS/3 ML VIAL SC PRN (06:18)
[2021-04-10] MEDS: Cilostazol 100 MG TAB PO SCH ×2 (06:19→16:21)
[2021-04-10 06:27] LABS: Anion Gap 10 mmol/L (10-20); BUN (Urea Nitrogen) 6 mg/dL (8.4-25.7); Calc. Creatinine Clearance 197 mL/min (70-130); Calcium 8.1 mg/dL (7.8-10.44); Carbon Dioxide 28 mmol/L (22-29); Chloride 100 mmol/L (98-107); Glucose 140 mg/dL (70-105); Potassium 3.6 mmol/L (3.5-5.1); Sodium 134 mmol/L (136-145)
[2021-04-10] MEDS: HYDROcodone/Acetaminophen 7.5/325 mg Tablet PO PRN ×3 (08:52→18:18)
[2021-04-10] MEDS: metFORMIN 500 MG TAB PO SCH ×2 (08:54→16:55)
[2021-04-10] MEDS: Famotidine 20 MG TAB PO SCH ×2 (08:55→21:21)
[2021-04-10] MEDS: Metoprolol Tartrate 25 MG TAB PO SCH ×2 (08:55→21:21)
[2021-04-10] MEDS: Saccharomyces boulardii 250 MG CAP PO SCH (08:55)
[2021-04-10] MEDS: metroNIDAZOLE 500 MG TAB PO SCH ×3 (08:56→21:21)
[2021-04-10] MEDS: Polyethylene Glycol 3350 17 GM Packet PO SCH (08:57)
[2021-04-10] MEDS ORDERED: Lisinopril/Hydrochlorothiazide 20/25 mg Tablet PO SCH (09:00)
[2021-04-10] MEDS ORDERED: Atorvastatin Calcium 40 MG TAB PO SCH (09:00)
[2021-04-10] MEDS ORDERED: Clopidogrel Bisulfate 75 MG TAB PO SCH (09:00)
[2021-04-10] MEDS ORDERED: Gabapentin 300 MG CAP PO SCH (09:00)
[2021-04-10] MEDS ORDERED: Aspirin 81 mg Enteric Coated Tablet PO SCH (09:00)
[2021-04-10] MEDS: Enoxaparin Sodium 40 MG/0.4 ML SYRINGE SC SCH (09:05)
[2021-04-10] MEDS ORDERED: Iopamidol 370 76% 50 ML VIAL FS ONE (13:36)
[2021-04-10] MEDS ORDERED: Iopamidol-370 76% 500 ML 1 ML ONE (13:36)
[2021-04-10] MEDS: Lactated Ringer's 1,000 ML IV SCH (16:55)
[2021-04-10] MEDS ORDERED: Lactated Ringer's 1,000 ML IV SCH (19:45)
[2021-04-10] MEDS ORDERED: Fentanyl 100 MCG/2 ML VIAL ONE ×2 (21:58)
[2021-04-10] MEDS ORDERED: Calcium Chloride 1 GM/10 ML Abboject SYRINGE ONE (22:50)
[2021-04-10] MEDS ORDERED: Lidocaine 1% PF 5 ML VIAL ONE (22:50)
[2021-04-10] MEDS ORDERED: Rocuronium Bromide 10 MG/ML (10ML VIAL) ONE (22:50)
[2021-04-10] MEDS ORDERED: PHENYLEPHRINE-NS 100 MCG/ML 10 ML SYRINGE ONE (22:50)
[2021-04-10] MEDS ORDERED: Succinylcholine 200 MG/10 ml SYRINGE FS ONE (22:50)
[2021-04-10] MEDS ORDERED: Ondansetron PF 4 MG/2 ML Vial ONE (22:50)
[2021-04-10] MEDS ORDERED: Glycopyrrolate 0.2 MG/ML 5 ML SYRINGE ONE (22:50)
[2021-04-10] MEDS ORDERED: Piperacillin/Tazobactam 3.375 GM VIAL ONE (22:57)
[2021-04-10] MEDS ORDERED: Sodium Chloride 0.9% 30 ML ONE (22:57)
[2021-04-10] MEDS ORDERED: Midazolam HCl 2 mg/2 ml Vial ONE (23:33)
[2021-04-10] MEDS ORDERED: Albumin 5% 500 ML ONE (23:33)
[2021-04-11] MEDS ORDERED: Ondansetron PF 4 MG/2 ML Vial IVP PRN ×2 (01:12→01:13)
[2021-04-11] MEDS ORDERED: diphenhydrAMINE 50 MG/ML VIAL IVP PRN ×2 (01:12→01:13)
[2021-04-11] MEDS ORDERED: Zolpidem Tartrate 5 MG TAB PO PRN ×2 (01:12→01:13)
[2021-04-11] MEDS ORDERED: diphenhydrAMINE 25 MG CAP PO PRN ×2 (01:12→01:13)
[2021-04-11] MEDS ORDERED: Ondansetron HCl/PF 4 MG/2 ML Vial IVP PRN (01:12)
[2021-04-11] MEDS ORDERED: Promethazine HCl 25 MG/ML VIAL IVPB PRN (01:12)
[2021-04-11] MEDS ORDERED: Naloxone HCl 0.4 mg/ml Vial IV PRN ×2 (01:12→01:13)
[2021-04-11] MEDS ORDERED: diphenhydrAMINE 50 MG/ML VIAL IM PRN ×2 (01:12→01:13)
[2021-04-11] MEDS ORDERED: Promethazine HCl 25 MG/ML VIAL IM PRN ×3 (01:12→01:13)
[2021-04-11] MEDS ORDERED: Communication Order-Pharmacy FS SCH ×2 (01:15)
[2021-04-11] MEDS ORDERED: Norepinephrine 8 MG/0.9% NS 250 ML IVPB SCH (02:30)
[2021-04-11 04:30] LABS: Hemoglobin 8.6 g/dL (14.0-18.0); Mean Corpuscular HGB CONC 32.6 g/dL (32.0-36.0); Mean Corpuscular Hemoglobin 33.3 pg (27.0-31.0); RBC Distribution Width 14.4 % (11.5-14.5); Red Blood Cell (RBC) Count 2.58 mill/uL (4.70-6.10); White Blood Cell (WBC) Count 20.1 thou/uL (4.8-10.8)
[2021-04-11 04:31] LABS: Band 43 % (5-11); Hypochromia SLIGHT = 6-15 cells (100X) (0-5/hpf); Lymphocytes 6 % (21-51); MDiff Complete? YES; Macrocytosis SLIGHT = 6-15 cells (100X) (0-5/hpf); Mean Platelet Volume 8.1 fL (7.4-10.4); Metamyelocyte 1 % (0-0); Monocytes 3 % (0-10); Neutrophil 47 % (42-75); Nucleated RBC 2 % (0); Platelet Count 298 thou/uL (130-400); Platelet Morphology Comment Appears Adequate
[2021-04-11] MEDS: Piperacillin/Tazobactam 3.375 GM in Sodium Chloride 0.9% 100 ML IVPB SCH ×3 (04:53→18:27)
[2021-04-11] MEDS: Lactated Ringer's 1,000 ML IV SCH ×2 (04:54→05:34)
[2021-04-11 05:04] LABS: ALT (SGPT) 86 U/L (8-55); AST (SGOT) 91 U/L (5-34); Albumin 2.5 g/dL (3.5-5.0); Alkaline Phosphatase 70 U/L (40-110); Anion Gap 23 mmol/L (10-20); BUN (Urea Nitrogen) 10 mg/dL (8.4-25.7); Bilirubin, Total 1.2 mg/dL (0.2-1.2); Calc. Creatinine Clearance 131 mL/min (70-130); Calcium 8.5 mg/dL (7.8-10.44); Carbon Dioxide 13 mmol/L (22-29); Chloride 103 mmol/L (98-107); Globulin 2.9 g/dL (2.4-3.5); Glucose 93 mg/dL (70-105); Potassium 3.2 mmol/L (3.5-5.1); Protein, Total 5.4 g/dL (6.0-8.3); Sodium 136 mmol/L (136-145)
[2021-04-11] MEDS ORDERED: Piperacillin/Tazobactam 3.375 GM in Sodium Chloride 0.9% 100 ML IVPB SCH (06:00)
[2021-04-11] MEDS ORDERED: Potassium Chloride 40 MEQ in Sodium Chloride 0.9% 250 ML 250 ML IVPB SCH (08:00)
[2021-04-11] MEDS: Aspirin Chewable 81 MG TAB PO SCH (08:16)
[2021-04-11] MEDS ORDERED: Enoxaparin Sodium 40 MG/0.4 ML SYRINGE ONE (08:34)
[2021-04-11] MEDS ORDERED: Enoxaparin Sodium 40 MG/0.4 ML SYRINGE SC SCH (08:45)
[2021-04-11] MEDS: Enoxaparin Sodium 40 MG/0.4 ML SYRINGE SC SCH (08:46)
[2021-04-11] MEDS: Sodium Bicarbonate 70 MEQ in Sodium Chloride 0.45% 1,000 ML IV SCH ×3 (08:46→22:31)
[2021-04-11] MEDS ORDERED: Sodium Chloride 0.9% (PF) 10 ML VIAL FS PRN (09:00)
[2021-04-11] MEDS ORDERED: Pantoprazole 40 MG VIAL IVP SCH (09:00)
[2021-04-11] MEDS: Insulin Regular 300 UNITS/3 ML VIAL SC PRN ×3 (10:40→20:35)
[2021-04-11 13:50] LABS: Potassium 3.4 mmol/L (3.5-5.1)
[2021-04-12] MEDS: Piperacillin/Tazobactam 3.375 GM in Sodium Chloride 0.9% 100 ML IVPB SCH ×3 (03:40→20:00)
[2021-04-12 04:33] LABS: ALT (SGPT) 177 U/L (8-55); AST (SGOT) 415 U/L (5-34); Albumin 2.3 g/dL (3.5-5.0); Alkaline Phosphatase 98 U/L (40-110); Anion Gap 14 mmol/L (10-20); BUN (Urea Nitrogen) 13 mg/dL (8.4-25.7); Bilirubin, Total 0.7 mg/dL (0.2-1.2); Calc. Creatinine Clearance 178 mL/min (70-130); Calcium 7.9 mg/dL (7.8-10.44); Carbon Dioxide 27 mmol/L (22-29); Chloride 97 mmol/L (98-107); Globulin 3.2 g/dL (2.4-3.5); Glucose 170 mg/dL (70-105); Potassium 3.2 mmol/L (3.5-5.1); Protein, Total 5.5 g/dL (6.0-8.3); Sodium 135 mmol/L (136-145)
[2021-04-12 04:54] LABS: Hemoglobin 9.1 g/dL (14.0-18.0); Mean Corpuscular HGB CONC 31.6 g/dL (32.0-36.0); Mean Corpuscular Hemoglobin 32.2 pg (27.0-31.0); Platelet Count 399 thou/uL (130-400); RBC Distribution Width 14.5 % (11.5-14.5); Red Blood Cell (RBC) Count 2.83 mill/uL (4.70-6.10)
[2021-04-12 04:55] LABS: Band 22 % (5-11); Hypochromia SLIGHT = 6-15 cells (100X) (0-5/hpf); Lymphocytes 4 % (21-51); MDiff Complete? YES; Macrocytosis MODERATE=16-30 cells (100X) (0-5/hpf); Metamyelocyte 4 % (0-0); Monocytes 1 % (0-10); Neutrophil 69 % (42-75); Nucleated RBC 2 % (0); Platelet Morphology Comment Appears Adequate; Polychromasia MODERATE = 3-4 cells (100X) (0-2/hpf)
[2021-04-12] MEDS: Sodium Bicarbonate 70 MEQ in Sodium Chloride 0.45% 1,000 ML IV SCH (05:21)
[2021-04-12] MEDS: Insulin Regular 300 UNITS/3 ML VIAL SC PRN ×2 (05:21→11:09)
[2021-04-12] MEDS ORDERED: Potassium Chloride 40 MEQ in Sodium Chloride 0.9% 250 ML 250 ML IVPB SCH (07:30)
[2021-04-12] MEDS: Lactated Ringer's 1,000 ML IV SCH ×2 (08:39→18:33)
[2021-04-12] MEDS: Aspirin Chewable 81 MG TAB PO SCH (09:25)
[2021-04-12] MEDS: Enoxaparin Sodium 40 MG/0.4 ML SYRINGE SC SCH ×2 (09:29→19:24)
[2021-04-12 14:35] LABS: Potassium 3.4 mmol/L (3.5-5.1)
[2021-04-12] MEDS ORDERED: Electrolyte Replacement Protocol 1 EACH FS ONE (17:44)
[2021-04-12] MEDS ORDERED: Electrolyte Replacement Protocol FS PRN (18:00)
[2021-04-12] MEDS ORDERED: Fentanyl CADD 100 ML ONE (18:09)
[2021-04-12] MEDS: fentaNYL Citrate/PF 2,000 MCG in Sodium Chloride 0.9% 60 ML IV PRN (18:11)
[2021-04-12] MEDS: Potassium Chloride 20 MEQ in Lactated Ringer's 1,000 ML IV SCH (18:34)
[2021-04-12] MEDS: Loperamide HCl 2 MG CAP PO PRN (21:49)
[2021-04-13] MEDS: Piperacillin/Tazobactam 3.375 GM in Sodium Chloride 0.9% 100 ML IVPB SCH ×3 (02:36→18:18)
[2021-04-13] MEDS: Potassium Chloride 20 MEQ in Lactated Ringer's 1,000 ML IV SCH (04:43)
[2021-04-13 07:44] LABS: Hemoglobin 8.3 g/dL (14.0-18.0); Mean Corpuscular HGB CONC 32.4 g/dL (32.0-36.0); Mean Corpuscular Hemoglobin 33.1 pg (27.0-31.0); Mean Platelet Volume 7.9 fL (7.4-10.4); Platelet Count 344 thou/uL (130-400); RBC Distribution Width 14.4 % (11.5-14.5); White Blood Cell (WBC) Count 33.5 thou/uL (4.8-10.8)
[2021-04-13 07:51] LABS: Anion Gap 10 mmol/L (10-20); BUN (Urea Nitrogen) 11 mg/dL (8.4-25.7); Calc. Creatinine Clearance 197 mL/min (70-130); Calcium 7.4 mg/dL (7.8-10.44); Carbon Dioxide 30 mmol/L (22-29); Chloride 95 mmol/L (98-107); Glucose 162 mg/dL (70-105); Potassium 3.5 mmol/L (3.5-5.1); Sodium 131 mmol/L (136-145)
[2021-04-13] MEDS: Aspirin Chewable 81 MG TAB PO SCH (08:41)
[2021-04-13 08:44] LABS: Band 41 % (5-11); Eosinophils 1 % (0-10); Lymphocytes 5 % (21-51); MDiff Complete? YES; Neutrophil 53 % (42-75); Nucleated RBC 1 % (0); Platelet Morphology Comment Appears Adequate; Polychromasia SLIGHT = 2-3 cells (100X) (0-2/hpf)
[2021-04-13] MEDS ORDERED: Potassium Chloride 40 MEQ in Sodium Chloride 0.9% 250 ML 250 ML IVPB SCH (09:00)
[2021-04-13] MEDS: NS 0.9% w/ 20 MEQ KCL 1,000 ML/1,000 ML BAG IV SCH (10:43)
[2021-04-13] MEDS: Enoxaparin Sodium 40 MG/0.4 ML SYRINGE SC SCH (10:44)
[2021-04-13] MEDS: Loperamide HCl 2 MG CAP PO SCH ×3 (11:17→21:38)
[2021-04-13] MEDS: Insulin Regular 300 UNITS/3 ML VIAL SC PRN (12:41)
[2021-04-13 18:39] LABS: SARS-CoV-2 PCR by NAA Not Detected (NotDetected)
[2021-04-13] MEDS: Acetaminophen 325 MG TAB PO PRN (21:38)
[2021-04-14] MEDS: NS 0.9% w/ 20 MEQ KCL 1,000 ML/1,000 ML BAG IV SCH ×2 (00:28→18:02)
[2021-04-14] MEDS: Piperacillin/Tazobactam 3.375 GM in Sodium Chloride 0.9% 100 ML IVPB SCH (02:22)
[2021-04-14] MEDS: fentaNYL Citrate/PF 2,000 MCG in Sodium Chloride 0.9% 60 ML IV PRN (02:26)
[2021-04-14] MEDS: Loperamide HCl 2 MG CAP PO SCH ×4 (05:57→20:54)
[2021-04-14 07:21] LABS: Hemoglobin 9.3 g/dL (14.0-18.0); Mean Corpuscular HGB CONC 30.6 g/dL (32.0-36.0); Mean Corpuscular Hemoglobin 31.4 pg (27.0-31.0); Mean Platelet Volume 8.4 fL (7.4-10.4); Platelet Count 337 thou/uL (130-400); RBC Distribution Width 14.3 % (11.5-14.5); Red Blood Cell (RBC) Count 2.95 mill/uL (4.70-6.10); White Blood Cell (WBC) Count 24.5 thou/uL (4.8-10.8)
[2021-04-14 08:03] LABS: ALT (SGPT) 110 U/L (8-55); AST (SGOT) 97 U/L (5-34); Albumin 2.3 g/dL (3.5-5.0); Alkaline Phosphatase 142 U/L (40-110); Anion Gap 15 mmol/L (10-20); BUN (Urea Nitrogen) 8 mg/dL (8.4-25.7); Bilirubin, Total 0.9 mg/dL (0.2-1.2); Calc. Creatinine Clearance 190 mL/min (70-130); Calcium 7.7 mg/dL (7.8-10.44); Carbon Dioxide 21 mmol/L (22-29); Chloride 100 mmol/L (98-107); Globulin 3.3 g/dL (2.4-3.5); Glucose 129 mg/dL (70-105); Potassium 4.1 mmol/L (3.5-5.1); Protein, Total 5.6 g/dL (6.0-8.3); Sodium 132 mmol/L (136-145)
[2021-04-14 08:26] LABS: Band 20 % (5-11); Eosinophils 3 % (0-10); Hypochromia SLIGHT = 6-15 cells (100X) (0-5/hpf); Lymphocytes 3 % (21-51); MDiff Complete? YES; Microcytosis SLIGHT = 6-15 cells (100X) (0-5/hpf); Monocytes 1 % (0-10); Neutrophil 73 % (42-75); Nucleated RBC 1 % (0); Platelet Morphology Comment Appears Adequate; Polychromasia SLIGHT = 2-3 cells (100X) (0-2/hpf)
[2021-04-14] MEDS ORDERED: HYDROcodone/Acetaminophen 7.5/325 mg Tablet PO PRN ×2 (09:10)
[2021-04-14] MEDS ORDERED: metroNIDAZOLE 500 MG TAB PO SCH (09:15)
[2021-04-14] MEDS: Enoxaparin Sodium 40 MG/0.4 ML SYRINGE SC SCH (10:06)
[2021-04-14] MEDS: Aspirin Chewable 81 MG TAB PO SCH (10:06)
[2021-04-14] MEDS: Insulin Regular 300 UNITS/3 ML VIAL SC PRN (12:22)
[2021-04-14] MEDS: metroNIDAZOLE 500 MG TAB PO SCH ×2 (14:25→20:54)
[2021-04-14] MEDS ORDERED: NS 0.9% w/ 20 MEQ KCL 1,000 ML/1,000 ML BAG IV SCH (17:45)
[2021-04-15] MEDS: Loperamide HCl 2 MG CAP PO SCH ×3 (04:50→14:21)
[2021-04-15] MEDS: Insulin Regular 300 UNITS/3 ML VIAL SC PRN (06:13)
[2021-04-15 06:53] LABS: Hemoglobin 9.8 g/dL (14.0-18.0); Mean Corpuscular HGB CONC 33.3 g/dL (32.0-36.0); Mean Corpuscular Hemoglobin 33.6 pg (27.0-31.0); Mean Platelet Volume 8.1 fL (7.4-10.4); Platelet Count 335 thou/uL (130-400); RBC Distribution Width 14.6 % (11.5-14.5); Red Blood Cell (RBC) Count 2.91 mill/uL (4.70-6.10); White Blood Cell (WBC) Count 15.1 thou/uL (4.8-10.8)
[2021-04-15 07:02] LABS: Anion Gap 10 mmol/L (10-20); BUN (Urea Nitrogen) 7 mg/dL (8.4-25.7); Calc. Creatinine Clearance 181 mL/min (70-130); Calcium 7.1 mg/dL (7.8-10.44); Carbon Dioxide 24 mmol/L (22-29); Chloride 101 mmol/L (98-107); Glucose 170 mg/dL (70-105); Sodium 131 mmol/L (136-145)
[2021-04-15 07:33] LABS: Band 20 % (5-11); Lymphocytes 9 % (21-51); MDiff Complete? YES; Macrocytosis SLIGHT = 6-15 cells (100X) (0-5/hpf); Monocytes 2 % (0-10); Neutrophil 69 % (42-75); Nucleated RBC 2 % (0); Polychromasia SLIGHT = 2-3 cells (100X) (0-2/hpf)
[2021-04-15] MEDS: Enoxaparin Sodium 40 MG/0.4 ML SYRINGE SC SCH (09:15)
[2021-04-15] MEDS: metroNIDAZOLE 500 MG TAB PO SCH ×2 (09:15→14:21)
[2021-04-15] MEDS: Aspirin Chewable 81 MG TAB PO SCH (09:15)
[2021-04-15 12:19] VITALS: BP 125/73; TEMP 98.6
[2021-04-15] MEDS: Loperamide HCl 2 MG CAP PO PRN (14:21)
== END 2021-04-15 15:47 | disposition home or self-care (01) | DRG 853 ==
LOC: ERS 08:12 → SURG A 13:38 → SJJU 18:40 → CCU 04-11 03:36 → SURG A 04-12 19:11
PROVIDERS: ADMIT Specialist; ATTEND Specialist
PROC: 0DTF0ZZ Resection of Right Large Intestine, Open Approach (ICD-10-PCS; principal; 2021-04-05)
PROC: 3E033XZ Introduction of Vasopressor into Peripheral Vein, Percutaneous Approach (ICD-10-PCS; 2021-04-05)
PROC: 0HDLXZZ Extraction of Left Lower Leg Skin, External Approach (ICD-10-PCS; 2021-04-08)
PROC: 0DQN0ZZ Repair Sigmoid Colon, Open Approach (ICD-10-PCS; 2021-04-10)
PROC: 0D1B0Z4 Bypass Ileum to Cutaneous, Open Approach (ICD-10-PCS; 2021-04-10)
PROC: 02HV33Z Insertion of Infusion Device into Superior Vena Cava, Percutaneous Approach (ICD-10-PCS; 2021-04-11)
DX: A41.9 Sepsis, unspecified organism (principal); K55.059 Acute (reversible) ischemia of intestine, part and extent unspecified; R65.21 Severe sepsis with septic shock; K63.1 Perforation of intestine (nontraumatic); L03.116 Cellulitis of left lower limb; K56.7 Ileus, unspecified; E87.1 Hypo-osmolality and hyponatremia; K91.89 Other postprocedural complications and disorders of digestive system; Z20.822 Contact with and (suspected) exposure to COVID-19; E78.2 Mixed hyperlipidemia; K63.89 Other specified diseases of intestine; T87.81 Dehiscence of amputation stump; Y83.5 Amputation of limb(s) as the cause of abnormal reaction of the patient, or of later complication, without mention of misadventure at the time of the procedure; E11.51 Type 2 diabetes mellitus with diabetic peripheral angiopathy without gangrene; E11.620 Type 2 diabetes mellitus with diabetic dermatitis; I10 Essential (primary) hypertension; E78.00 Pure hypercholesterolemia, unspecified; I25.10 Atherosclerotic heart disease of native coronary artery without angina pectoris; E87.6 Hypokalemia; Y83.9 Surgical procedure, unspecified as the cause of abnormal reaction of the patient, or of later complication, without mention of misadventure at the time of the procedure; Z82.49 Family history of ischemic heart disease and other diseases of the circulatory system; Z82.3 Family history of stroke; Z89.421 Acquired absence of other right toe(s); Z83.42 Family history of familial hypercholesterolemia; Z84.1 Family history of disorders of kidney and ureter; Z89.512 Acquired absence of left leg below knee; Z87.891 Personal history of nicotine dependence; Z88.0 Allergy status to penicillin; Z79.01 Long term (current) use of anticoagulants; Z79.82 Long term (current) use of aspirin; Z79.4 Long term (current) use of insulin; Z79.899 Other long term (current) drug therapy; Z95.1 Presence of aortocoronary bypass graft
CPT/HCPCS: 36415; 36416; 71045; 74177; 80048; 80053; 80061; 80202; 83036; 83605; 83690; 84484; 85025; 87040; 87070; 87077; 87186; 87205; 88307; 93005; 96365; 96366; 96368; 96375; C1751; C9113; J1100; J1650; J1815; J1956; J2250; J2270; J2370; J2405; J2543; J2704; J3010; J3370; J3480; J3490; J7050; J7120; P9045; Q9967; S0028; U0002; U0003; U0005

== ENCOUNTER 2021-04-18 10:37 | Inpatient (IN) | payer MEDICARE, BC ==
[2021-04-18 11:37] LABS: Mean Platelet Volume 8.3 fL (7.4-10.4); RBC Distribution Width 14.5 % (11.5-14.5)
[2021-04-18 11:52] LABS: Calc. Creatinine Clearance 0 mL/min (70-130)
[2021-04-18 12:43] LABS: White Blood Cell (WBC) Count 36.3 thou/uL (4.8-10.8)
[2021-04-18 12:44] LABS: Hemoglobin 11.4 g/dL (14.0-18.0); Red Blood Cell (RBC) Count 3.62 mill/uL (4.70-6.10)
[2021-04-18 12:45] LABS: Mean Corpuscular HGB CONC 30.8 g/dL (32.0-36.0); Mean Corpuscular Hemoglobin 31.4 pg (27.0-31.0)
[2021-04-18 12:46] LABS: Platelet Count 531 thou/uL (130-400)
[2021-04-18 13:10] LABS: Anisocytosis SLIGHT = 6-15 cells (100X) (0-5/hpf); Band 29 % (5-11); Burr Cells SLIGHT = 2-5 cells (100X) (0-1/hpf); Hypochromia SLIGHT = 6-15 cells (100X) (0-5/hpf); Lymphocytes 4 % (21-51); MDiff Complete? YES; Macrocytosis SLIGHT = 6-15 cells (100X) (0-5/hpf); Monocytes 2 % (0-10); Neutrophil 65 % (42-75); Nucleated RBC 5 % (0); Ovalocytes SLIGHT = 2-5 cells (100X) (0-1/hpf); Platelet Morphology Comment Appears Increased; Polychromasia MODERATE = 3-4 cells (100X) (0-2/hpf); Target Cells SLIGHT = 2-5 cells (100X) (0-1/hpf); Tear Drops SLIGHT = 2-5 cells (100X) (0-1/hpf)
[2021-04-18 13:27] LABS: Carbon Dioxide 8 mmol/L (22-29); Chloride 97 mmol/L (98-107); Sodium 126 mmol/L (136-145)
[2021-04-18 13:28] LABS: Anion Gap 26 mmol/L (10-20); BUN (Urea Nitrogen) 24 mg/dL (8.4-25.7)
[2021-04-18] MEDS ORDERED: Vancomycin 1 GM/200 ML BAG ONE (13:28)
[2021-04-18 13:29] LABS: Bilirubin, Total 0.9 mg/dL (0.2-1.2); Calcium 7.8 mg/dL (7.8-10.44); Glucose 130 mg/dL (70-105)
[2021-04-18 13:30] LABS: Albumin 2.3 g/dL (3.5-5.0); Protein, Total 5.9 g/dL (6.0-8.3)
[2021-04-18 13:31] LABS: Alkaline Phosphatase 119 U/L (40-110); Globulin 3.6 g/dL (2.4-3.5)
[2021-04-18 13:32] LABS: ALT (SGPT) 34 U/L (8-55); AST (SGOT) 74 U/L (5-34)
[2021-04-18] MEDS ORDERED: Cefepime 2 GM in Sodium Chloride 0.9% 100 ML IVPB SCH (14:30)
[2021-04-18] MEDS ORDERED: HYDROcodone/Acetaminophen 5/325 mg Tablet PO PRN (16:55)
[2021-04-18] MEDS ORDERED: Ondansetron PF 4 MG/2 ML Vial IVP PRN (16:55)
[2021-04-18] MEDS ORDERED: Acetaminophen 325 MG TAB PO PRN (16:55)
[2021-04-18] MEDS ORDERED: Loperamide HCl 2 MG CAP PO PRN ×2 (16:55)
[2021-04-18] MEDS ORDERED: Sodium Chloride 0.9% 1,000 ML IV SCH ×2 (17:00→18:45)
[2021-04-18] MEDS ORDERED: Norepinephrine 8 MG/0.9% NS 250 ML ONE (17:07)
[2021-04-18] MEDS ORDERED: Dextrose 50% Abboject 50 ML SYRINGE SLOW IVP PRN (17:53)
[2021-04-18] MEDS ORDERED: Dextrose 5% in Water 1,000 ML IV PRN (17:53)
[2021-04-18] MEDS ORDERED: HumaLOG 300 UNITS/3 ML VIAL SC PRN (17:53)
[2021-04-18] MEDS ORDERED: Piperacillin/Tazobactam 4.5 GM in Sodium Chloride 0.9% 100 ML IVPB SCH (18:00)
[2021-04-18] MEDS ORDERED: Vancomycin 25 MG/ML Oral SOLN PO SCH (18:00)
[2021-04-18 18:56] LABS: SARS-CoV-2 NAA Rapid Test Not Detected (NotDetected)
[2021-04-18] MEDS ORDERED: HYDROcodone/Acetaminophen 5/325 mg Tablet ONE (19:26)
[2021-04-18] MEDS ORDERED: Piperacillin/Tazobactam 4.5 GM VIAL ONE (20:01)
[2021-04-18 20:08] LABS: BUN (Urea Nitrogen) 28 mg/dL (8.4-25.7); Calc. Creatinine Clearance 0 mL/min (70-130); Calcium 7.4 mg/dL (7.8-10.44); Carbon Dioxide Less than 8 mmol/L (22-29); Chloride 102 mmol/L (98-107); Glucose 54 mg/dL (70-105); Potassium 5.2 mmol/L (3.5-5.1); Sodium 128 mmol/L (136-145)
[2021-04-18] MEDS ORDERED: Sodium Bicarbonate 150 MEQ in Dextrose 5% in Water 1,000 ML IV SCH (20:15)
[2021-04-18] MEDS ORDERED: Sodium Bicarb 50 MEQ/50 ML Abboject 8.4% SYRINGE IVP SCH (20:15)
[2021-04-18] MEDS ORDERED: Sodium Bicarb 50 MEQ/50 ML Abboject 8.4% SYRINGE ONE ×2 (20:19→23:34)
[2021-04-18] MEDS ORDERED: Famotidine/PF 20 mg/2ml Vial ONE (20:19)
[2021-04-18] MEDS: Sodium Bicarbonate 150 MEQ in Dextrose 5% in Water 1,000 ML IV SCH (21:00)
[2021-04-18] MEDS ORDERED: Famotidine/PF 20 mg/2ml Vial SLOW IVP SCH (21:00)
[2021-04-18] MEDS ORDERED: PHENYLEPHRINE-NS 100 MCG/ML 10 ML SYRINGE ONE (21:01)
[2021-04-18] MEDS ORDERED: Fentanyl 250 MCG/5 ML VIAL ONE (21:01)
[2021-04-18] MEDS ORDERED: ePHEDrine Sulfate 50 MG/10 ML VIAL ONE (21:01)
[2021-04-18] MEDS ORDERED: Phenylephrine 10 MG/ML VIAL ONE (21:15)
[2021-04-18] MEDS ORDERED: Rocuronium Bromide 50 MG/5 ML VIAL ONE (21:15)
[2021-04-18 21:46] LABS: Lactic Acid 16.5 mmol/L (0.5-2.2)
[2021-04-18] MEDS ORDERED: Rocuronium Bromide 10 MG/ML (10ML VIAL) ONE (21:51)
[2021-04-18] MEDS ORDERED: Calcium Chloride 1 GM/10 ML Abboject SYRINGE ONE (21:51)
[2021-04-18] MEDS ORDERED: ePHEDrine 50 MG/ML VIAL ONE (21:51)
[2021-04-18] MEDS ORDERED: Succinylcholine 200 MG/10 ml SYRINGE FS ONE (21:51)
[2021-04-18] MEDS: Piperacillin/Tazobactam 3.375 GM in Sodium Chloride 0.9% 100 ML IVPB SCH (22:00)
[2021-04-18] MEDS ORDERED: Dextrose 50% Abboject 50 ML SYRINGE ONE (22:57)
[2021-04-18] MEDS ORDERED: Sodium Bicarbonate 2.5 MEQ/5 ML VIAL ONE (23:34)
[2021-04-18] MEDS ORDERED: Propofol 1,000 MG/100 ML VIAL IV ONE (23:55)
[2021-04-19] LABS: Lactic Acid Greater than 13.4 mmol/L (0.5-2.2)
[2021-04-19 00:35] LABS: Actual Bicarbonate (HCO3a) 6.2 mEq/L (22-28); Base Excess (BEa) -24.6 mEq/L (-2.0 to +3.0); CO2 Tension 30.2 mmHg (35.0-45.0); Carboxyhemoglobin (COHb) 0.3 gm% (0.0-3.0); Hemoglobin (Hb) 8.7 g/dL (14.0-18.0); Potassium - ABG Lab 5.04 mmol/L (3.70-5.30)
[2021-04-19] MEDS ORDERED: Hydrocortisone Sod Succ/PF 100 mg/2 ml Vial ONE ×2 (00:35→05:31)
[2021-04-19 00:42] LABS: O2 Tension (PaO2), arterial 550.8 mmHg (80.0-100.0); Puncture Site LINE; pH, Arterial 6.93 (7.35-7.45)
[2021-04-19 01:07] LABS: Hemoglobin 8.2 g/dL (14.0-18.0); Mean Corpuscular HGB CONC 31.1 g/dL (32.0-36.0); Mean Corpuscular Hemoglobin 32.8 pg (27.0-31.0); Mean Platelet Volume 9.1 fL (7.4-10.4); Platelet Count 369 thou/uL (130-400); RBC Distribution Width 15.2 % (11.5-14.5)
[2021-04-19 01:20] LABS: BUN (Urea Nitrogen) 29 mg/dL (8.4-25.7); Calc. Creatinine Clearance 0 mL/min (70-130); Calcium 7.5 mg/dL (7.8-10.44); Chloride 102 mmol/L (98-107); Glucose 190 mg/dL (70-105); Potassium 5.5 mmol/L (3.5-5.1); Sodium 132 mmol/L (136-145)
[2021-04-19 01:22] LABS: Band 32 % (5-11); Burr Cells SLIGHT = 2-5 cells (100X) (0-1/hpf); Lymphocytes 3 % (21-51); MDiff Complete? YES; Metamyelocyte 1 % (0-0); Monocytes 2 % (0-10); Myelocyte 1 % (0-0); Neutrophil 60 % (42-75); Nucleated RBC 9 % (0); Polychromasia SLIGHT = 2-3 cells (100X) (0-2/hpf); Reactive Lymphocytes 1 % (0-10); White Blood Cell (WBC) Count 39.4 thou/uL (4.8-10.8)
[2021-04-19 01:25] LABS: Carbon Dioxide Less than 8 mmol/L (22-29)
[2021-04-19] MEDS: Norepinephrine 8 MG/0.9% NS 250 ML IVPB SCH ×2 (01:30→05:44)
[2021-04-19] MEDS ORDERED: Lorazepam 2 MG/ML VIAL SLOW IVP PRN ×2 (01:45→02:30)
[2021-04-19] MEDS ORDERED: Fentanyl CADD 100 ML IV SCH ×2 (01:45→02:30)
[2021-04-19] MEDS ORDERED: Fentanyl BOLUS 250 ML IVPB PRN ×2 (01:45→02:30)
[2021-04-19] MEDS ORDERED: DISCONTINUE PREVIOUS NARCOTIC PAIN MEDICATIONS AND BENZODIAZEPINES FS SCH ×2 (01:45→02:30)
[2021-04-19] MEDS ORDERED: Propofol BOLUS 1,000 MG/100 ML VIAL IV PRN ×2 (01:45→02:30)
[2021-04-19] MEDS ORDERED: Morphine 2 MG/ML VIAL SLOW IVP PRN ×2 (01:45→02:30)
[2021-04-19] MEDS ORDERED: Propofol 1,000 MG/100 ML VIAL IV PRN ×2 (01:45→02:30)
[2021-04-19] MEDS ORDERED: Sodium Bicarbonate 150 MEQ in Dextrose 5% in Water 1,000 ML IV SCH (02:30)
[2021-04-19] MEDS ORDERED: Lactated Ringer's 1,000 ML IV SCH ×3 (02:30→06:00)
[2021-04-19 03:27] LABS: Actual Bicarbonate (HCO3a) 4.1 mEq/L (22-28); Base Excess (BEa) -26.9 mEq/L (-2.0 to +3.0); Calcium, Ionized (arterial) 1.05 mmol/L (1.12-1.30); Carboxyhemoglobin (COHb) 0.1 gm% (0.0-3.0); Hemoglobin (Hb) 7.6 g/dL (14.0-18.0); O2 Tension (PaO2), arterial 261.7 mmHg (80.0-100.0); Potassium - ABG Lab 5.48 mmol/L (3.70-5.30)
[2021-04-19 03:31] LABS: CO2 Tension 21.4 mmHg (35.0-45.0)
[2021-04-19 03:32] LABS: Puncture Site LINE
[2021-04-19 03:38] VITALS: BMI 26.2
[2021-04-19] MEDS ORDERED: Sodium Chloride 0.9% 100 ML ONE (04:05)
[2021-04-19] MEDS ORDERED: Piperacillin/Tazobactam 3.375 GM VIAL ONE (04:05)
[2021-04-19] MEDS ORDERED: Vasopressin 20 UNIT, Admixture Fee 1 EACH in Sodium Chloride 0.9% 50 ML IV SCH (04:15)
[2021-04-19] MEDS: Sodium Bicarbonate 150 MEQ in Dextrose 5% in Water 1,000 ML IV SCH (04:17)
[2021-04-19 04:32] LABS: Lactic Acid 0.8 mmol/L (0.5-2.2)
[2021-04-19] MEDS ORDERED: Sodium Bicarb 50 MEQ/50 ML Abboject 8.4% SYRINGE ONE (04:33)
[2021-04-19] MEDS ORDERED: EPINEPHrine 4 MG in Dextrose 5% in Water 250 ML IV SCH (04:45)
[2021-04-19] MEDS ORDERED: Sodium Bicarb 50 MEQ/50 ML Abboject 8.4% SYRINGE IVP SCH (05:30)
[2021-04-19] MEDS: Hydrocortisone Sod Succ/PF 100 mg/2 ml Vial IVP SCH ×2 (05:41)
[2021-04-19 05:46] LABS: Troponin I Less than 0.010 ng/mL (< 0.028)
[2021-04-19 05:53] VITALS: TEMP 96.6
[2021-04-19] MEDS: Piperacillin/Tazobactam 3.375 GM in Sodium Chloride 0.9% 100 ML IVPB SCH (06:24)
[2021-04-19 06:50] LABS: Hemoglobin 8.5 g/dL (14.0-18.0); Mean Corpuscular HGB CONC 29.8 g/dL (32.0-36.0); Mean Corpuscular Hemoglobin 33.7 pg (27.0-31.0); Mean Platelet Volume 9.9 fL (7.4-10.4); Platelet Count 256 thou/uL (130-400); RBC Distribution Width 15.8 % (11.5-14.5); Red Blood Cell (RBC) Count 2.51 mill/uL (4.70-6.10); White Blood Cell (WBC) Count 57.8 thou/uL (4.8-10.8)
[2021-04-19 07:01] LABS: Magnesium 2.3 mg/dL (1.6-2.6)
[2021-04-19 07:25] LABS: ALT (SGPT) 200 U/L (8-55); AST (SGOT) 1040 U/L (5-34); Albumin 1.5 g/dL (3.5-5.0); Alkaline Phosphatase 122 U/L (40-110); BUN (Urea Nitrogen) 27 mg/dL (8.4-25.7); Bilirubin, Total 0.8 mg/dL (0.2-1.2); Calc. Creatinine Clearance 38 mL/min (70-130); Carbon Dioxide Less than 8 mmol/L (22-29); Chloride 104 mmol/L (98-107); Globulin 2.3 g/dL (2.4-3.5); Glucose 72 mg/dL (70-105); Phosphorus 12.5 mg/dL (2.3-4.7); Potassium 6.7 mmol/L (3.5-5.1); Protein, Total 3.8 g/dL (6.0-8.3); Sodium 135 mmol/L (136-145)
[2021-04-19 07:26] VITALS: BP 80/52
[2021-04-19 07:27] LABS: Lactic Acid Greater than 13.4 mmol/L (0.5-2.2)
[2021-04-19 07:33] LABS: Band 41 % (5-11); Burr Cells MODERATE= 6-15 cells (100X) (0-1/hpf); Lymphocytes 4 % (21-51); MDiff Complete? YES; Metamyelocyte 4 % (0-0); Monocytes 4 % (0-10); Myelocyte 2 % (0-0); Neutrophil 44 % (42-75); Nucleated RBC 3 % (0); Platelet Morphology Comment Appears Adequate; Polychromasia MODERATE = 3-4 cells (100X) (0-2/hpf); Reactive Lymphocytes 1 % (0-10); Toxic Granulation SLIGHT; Vacuoles SLIGHT
[2021-04-19] MEDS ORDERED: Dextrose 50% Abboject 50 ML SYRINGE ONE ×2 (07:42→07:43)
[2021-04-19] MEDS ORDERED: Calcium Chloride 1 GM/10 ML Abboject SYRINGE ONE (07:42)
[2021-04-19] MEDS ORDERED: Insulin Regular 300 UNITS/3 ML VIAL ONE (07:44)
[2021-04-19] MEDS ORDERED: Sodium Chloride 0.9% 1,000 ML IV SCH (07:45)
[2021-04-19] MEDS ORDERED: Metoprolol Tartrate 50 MG TAB PO SCH (09:00)
[2021-04-19] MEDS ORDERED: Aspirin 81 mg Enteric Coated Tablet PO SCH (09:00)
[2021-04-19] MEDS ORDERED: Pantoprazole 40 MG VIAL IVP SCH (09:00)
[2021-04-19] MEDS ORDERED: Saccharomyces boulardii 250 MG CAP PO SCH (09:00)
[2021-04-19] MEDS ORDERED: Atorvastatin Calcium 40 MG TAB PO SCH (09:00)
[2021-04-19] MEDS ORDERED: Clopidogrel Bisulfate 75 MG TAB PO SCH (09:00)
[2021-04-19] MEDS ORDERED: Enoxaparin Sodium 40 MG/0.4 ML SYRINGE SC SCH (09:00)
[2021-04-25 15:02] LABS: Actual Bicarbonate (HCO3a) 5.2 mEq/L (22-28); Analyzer IN Cardio OR; Base Excess (BEa) -29.6 mEq/L (-2.0 to +3.0); Calcium, Ionized (arterial) 1.01 mmol/L (1.12-1.30); Carboxyhemoglobin (COHb) 0.3 gm% (0.0-3.0); Hemoglobin (Hb) 9.4 g/dL (14.0-18.0); O2 Tension (PaO2), arterial 459.7 mmHg (80.0-100.0); Potassium - ABG Lab 5.04 mmol/L (3.70-5.30)
[2021-04-25 15:02] LABS: Actual Bicarbonate (HCO3a) 4.8 mEq/L (22-28); Analyzer IN Cardio OR; Base Excess (BEa) -28.6 mEq/L (-2.0 to +3.0); CO2 Tension 34.3 mmHg (35.0-45.0); Calcium, Ionized (arterial) 1.24 mmol/L (1.12-1.30); Carboxyhemoglobin (COHb) 0.3 gm% (0.0-3.0); Hemoglobin (Hb) 8.2 g/dL (14.0-18.0); Potassium - ABG Lab 5.23 mmol/L (3.70-5.30)
[2021-04-25 15:03] LABS: Puncture Site Arterial Line; pH, Arterial 6.72 (7.35-7.45)
[2021-04-25 15:04] LABS: pH, Arterial 6.77 (7.35-7.45)
[2021-04-25 15:05] LABS: O2 Tension (PaO2), arterial 516.2 mmHg (80.0-100.0); Puncture Site Arterial Line
== END 2021-04-19 14:08 | disposition expired | DRG 853 ==
LOC: SUATTDRO 10:37 → ERS 10:37 → ERHOLD 17:01 → PACU-TCU 23:15
PROVIDERS: ADMIT Internal Medicine; ATTEND Internal Medicine
PROC: 02HV33Z Insertion of Infusion Device into Superior Vena Cava, Percutaneous Approach (ICD-10-PCS; principal; 2021-04-18)
PROC: 0DQN0ZZ Repair Sigmoid Colon, Open Approach (ICD-10-PCS; 2021-04-18)
PROC: 0D1B0Z4 Bypass Ileum to Cutaneous, Open Approach (ICD-10-PCS; 2021-04-18)
PROC: 0DB80ZZ Excision of Small Intestine, Open Approach (ICD-10-PCS; 2021-04-18)
PROC: 0DW807Z Revision of Autologous Tissue Substitute in Small Intestine, Open Approach (ICD-10-PCS; 2021-04-18)
PROC: 3E043XZ Introduction of Vasopressor into Central Vein, Percutaneous Approach (ICD-10-PCS; 2021-04-18)
PROC: 30243N1 Transfusion of Nonautologous Red Blood Cells into Central Vein, Percutaneous Approach (ICD-10-PCS; 2021-04-18)
DX: A41.9 Sepsis, unspecified organism (principal); R65.21 Severe sepsis with septic shock; N17.0 Acute kidney failure with tubular necrosis; K55.059 Acute (reversible) ischemia of intestine, part and extent unspecified; J96.01 Acute respiratory failure with hypoxia; E87.2 Acidosis; E87.1 Hypo-osmolality and hyponatremia; D62 Acute posthemorrhagic anemia; K94.19 Other complications of enterostomy; F17.210 Nicotine dependence, cigarettes, uncomplicated; E86.0 Dehydration; E87.8 Other disorders of electrolyte and fluid balance, not elsewhere classified; R57.1 Hypovolemic shock; R57.8 Other shock; E87.5 Hyperkalemia; D63.8 Anemia in other chronic diseases classified elsewhere; Z20.822 Contact with and (suspected) exposure to COVID-19; E78.2 Mixed hyperlipidemia; I10 Essential (primary) hypertension; Y83.8 Other surgical procedures as the cause of abnormal reaction of the patient, or of later complication, without mention of misadventure at the time of the procedure; E11.51 Type 2 diabetes mellitus with diabetic peripheral angiopathy without gangrene; E11.649 Type 2 diabetes mellitus with hypoglycemia without coma; E11.620 Type 2 diabetes mellitus with diabetic dermatitis; E86.1 Hypovolemia; E88.09 Other disorders of plasma-protein metabolism, not elsewhere classified; Z88.0 Allergy status to penicillin; Z79.01 Long term (current) use of anticoagulants; Z79.82 Long term (current) use of aspirin; Z79.4 Long term (current) use of insulin; Z79.899 Other long term (current) drug therapy; Z90.49 Acquired absence of other specified parts of digestive tract; Z89.512 Acquired absence of left leg below knee; Z95.5 Presence of coronary angioplasty implant and graft; Z89.421 Acquired absence of other right toe(s); Z95.1 Presence of aortocoronary bypass graft; Z78.1 Physical restraint status
CPT/HCPCS: 36415; 36416; 36430; 36556; 71045; 74176; 80048; 80053; 82805; 83605; 83735; 84100; 84145; 84484; 85025; 86850; 86900; 86901; 87040; 88307; 93005; 94002; 94760; 96365; 96366; 96367; C9113; J0171; J0692; J1720; J1815; J2370; J2543; J2704; J3010; J3370; J3490; J7050; J7070; J7120; P9016; S0028; U0002